=== PATIENT | female | born 2000 | race Caucasian/White ===

== ENCOUNTER 2023-05-02 16:58 | Emergency (ER) | payer BC, SELFPAY ==
[2023-05-02 17:02] VITALS: BP 120/81; PULSE 100; RESP 16; TEMP 36.4; O2SAT 100; BMI 17.8
--- NOTE | 2023-05-02 17:19 | ED.GENADULT ---
HPI - General Adult General Chief complaint: Sore Throat Stated complaint: Sore throat, white spots Time Seen by Provider: 05/02/23 17:00 History of Present Illness HPI narrative: pt tested positive for covid at urgent care on the . symptoms started around 04/22. not getting better. c/o sore throat, states white dots on back of throat. ears feel full. 22 year old young woman presenting to the emergency department complaint of sore throat. Recent diagnosis of COVID 5 days ago with symptoms beginning about 9 days ago. Upon diagnosis was given a course of prednisone sounds like 5 days. First symptom she says was diarrhea. She does also have myalgias. No described fever. On exam in notice with might be some plaquing posterior throat. She has had yeast infections but only yeast vaginitis not oral lesions and no history of cold sores in the mouth. No chronic illness otherwise. A little short of breath but not increasingly so. Sore throat has been increasing over the last 4 days especially on the right side. Does not have a history of asthma or reactive airway. Related Data Previous Rx's Medication Instructions Recorded Magic Mouthwash 5 - 10 ml PO QID PRN #120 mL 05/02/23 (Lidocaine/Benadryl/Maalox) 120 mL suspension Allergies Allergy/AdvReac Type Severity Reaction Status Date / Time No Known Drug Allergies Allergy Verified 05/02/23 17:07 Review of Systems Status of ROS: Reports: 6 or more systems reviewed and unremarkable except as noted in History and below Exam Narrative: Exam Narrative: Very slim. NAD. Mildly labored in her breathing. Lungs appear to be clear though. Clearing crepitus in the right lung base. Oropharynx is moist. She has white plaquing with erythema surrounding confluent more on the right soft palate than the left. No lesions elsewhere in the mouth. No actual gingival inflammation. Neck is supple without lymphadenopathy other than some fullness in the adenoids more sensitive on the right. Left TM is unremarkable right TM irregular but not inflamed. Heart in elevated rate in a regular rhythm. Const: Vital Signs, click to edit/add: Vital Signs - 24 hr 05/02/23 17:02 Temperature 97.5 F L Pulse Rate [Pulse Oximeter] 100 Respiratory Rate 16 Blood Pressure [Ri ght Upper Arm] 120/81 Pulse Oximetry 100 Oxygen Delivery Me thod Room Air Documenting provider has reviewed patient's vital signs: yes Course Vital Signs Vital signs: Initial Vital Signs Temperature 97.5 F L 05/02/23 17:02 Temperature Source Temporal Artery Scan 05/02/23 17:02 Pulse Rate 100 05/02/23 17:02 Respiratory Rate 16 05/02/23 17:02 Blood Pressure 120/81 05/02/23 17:02 Blood Pressure Mean 94 05/02/23 17:02 Blood Pressure Position Supine 05/02/23 17:02 Pulse Oximetry 100 05/02/23 17:02 Oxygen Delivery Method Room Air 05/02/23 17:02 Vital Signs Temperature 97.5 F L 05/02/23 17:02 Pulse Rate 100 05/02/23 17:02 Respiratory Rate 16 05/02/23 17:02 Blood Pressure 120/81 05/02/23 17:02 Pulse Oximetry 100 05/02/23 17:02 Oxygen Delivery Method Room Air 05/02/23 17:02 Temperature 97.5 F L 05/02/23 17:02 Pulse Rate 100 05/02/23 17:02 Respiratory Rate 16 05/02/23 17:02 Blood Pressure 120/81 05/02/23 17:02 Pulse Oximetry 100 05/02/23 17:02 Oxygen Delivery Method Room Air 05/02/23 17:02 Medical Decision Making MDM Narrative Medical decision making narrative: Wondering if this might actually be some oral thrush. She did have prednisone recently. No chronic illness otherwise noted. Might want to swab this for confirmation of this. I do not think these are typical for herpetic lesions. Testing for yeast and strep was negative. Was given ibuprofen during time in the ER. Some improvement with Hurricaine spray. Vitals stable. See patient discharge plan Lab Data Lab results reviewed: Yes I reviewed the patient's lab results Labs: Lab Results 05/02/23 Range/Units 17:35 CHETAN Result No Fungal Elements (None Seen) Group A Strep DNA NOT DETECTED (Not Detectd) CHETAN Prep Source Skin Discharge Plan Discharge Clinical Impression: Stomatitis, Pharyngitis Patient Disposition: Home, Self-Care Condition: Stable Additional Instructions: Important to stay well hydrated. Can take up to 800 mg of ibuprofen or up to 1000 mg of acetaminophen per dose. Continue to quarantine for a total of 10 days from 1st day of symptoms from COVID. [place] from [facility] if pain not settling with other recommended treatment. I would try anesthetic throat sprays or lozenges like Chloraseptic or Sucrets. Also can try Magic mouthwash as prescribed over this next week. Prescriptions: New Magic Mouthwash (Lidocaine/Benadryl/Maalox) 120 mL suspension 5 - 10 ml PO QID PRNQty: 120 1RF Rx Instructions: Lidocaine Viscous 2 % mucosal solution 40 mL; Maalox 200 mg-200 mg-20 mg/5 mL oral suspension 40 mL; Benadryl 12.5 mg/5 mL oral elixir 40 mL; Per 120 mL SWISH AND SPIT. MAY COMPOUND IF FIRST PRODUCT IS NOT AVAILABLE. Follow Up/Referrals: Provider,Not a Local [Primary Care Provider] - Stand Alone Forms: Continuing Education Records & [employer] Info Instructions
[2023-05-02] MEDS: IBUPROFEN 200 MG TABLET 600 MG PO (17:52)
[2023-05-02 18:29] LABS: Strep A DNA Probe* NOT DETECTED (Not Detectd)
== END 2023-05-02 19:02 | disposition home or self-care (01) ==
PROVIDERS: Emergency Provider Family Medicine
DX: R07.89 Other chest pain (principal)
CPT/HCPCS: 87210; 87651; 99283; 99284; A9270

== ENCOUNTER 2023-05-04 20:29 | Emergency (ER) | payer BC, SELFPAY ==
[2023-05-04 20:36] VITALS: BP 122/74; PULSE 110; RESP 18; TEMP 36.8; O2SAT 99; BMI 17.8
--- NOTE | 2023-05-04 20:40 | ED_ITS ---
HPI - General Adult General Time Seen by Provider: 20:40 Date Seen: 05/04/23 Chief complaint: Sore Throat Stated complaint: Sore throat Time Seen by Provider: 05/04/23 20:34 Source: patient Mode of arrival: ambulatory Limitations: no limitations History of Present Illness HPI narrative: 22-year-old female who presents today with sore throat. Patient was seen 2 days ago and had strep test done which was negative, was discharged with Magic mouthwash. Returns today with continued symptoms. Patient was diagnosed with COVID last week. Pain with swallowing. No breathing difficulty. She has been taking Tylenol and ibuprofen as well as using magic mouthwash with minimal relief Related Data Home Medications Medication Instructions Recorded Confirmed escitalopram oxalate 10 mg tablet 10 mg PO DAILY 05/04/23 05/04/23 levonorgestrel 0.15 mg-ethinyl 1 tab PO DAILY 05/04/23 05/04/23 estradiol 30 mcg tablets,3 mos pack(91) Previous Rx's Medication Instructions Recorded Magic Mouthwash 5 - 10 ml PO QID PRN #120 mL 05/02/23 (Lidocaine/Benadryl/Maalox) 120 mL suspension Allergies Allergy/AdvReac Type Severity Reaction Status Date / Time No Known Drug Allergies Allergy Verified 05/04/23 20:39 Review of Systems Status of ROS: Reports: 10 or more systems reviewed and unremarkable except as noted in History and below Exam Narrative: Exam Narrative: General: Well-developed and well-nourished, no acute distress Head: Atraumatic and normocephalic Eyes: Pupils are equal reactive, extraocular motions intact, conjunctiva clear ENT: External nose and ears are normal, posterior oropharynx erythematous with adherent white patches on the soft palate and tonsils as well as white plaque on the tongue Neck: No midline cervical tenderness, full spontaneous range of motion the neck, trachea midline, no adenopathy Heart: Tachycardic but regular Lungs: Clear to auscultation bilaterally without wheezes or crackles Abdomen: Soft, nontender, nondistended with active bowel sounds Musculoskeletal: No tenderness, deformity, or edema Neurologic: Awake, alert, and oriented x3, no gross focal neurologic deficits, cranial nerves intact as tested Psych: Mood and affect are appropriate Skin: No rashes Const: Vital Signs, click to edit/add: Vital Signs - 24 hr 05/04/23 20:36 Temperature 98.2 F Pulse Rate [Right Pulse Oximeter] 110 H Respiratory Rate 18 Blood Pressure [Ri ght Upper Arm] 122/74 Pulse Oximetry 99 Oxygen Delivery Ak thod Room Air Course Course Hospital Course: Patient seen examined, prior records are reviewed. Patient presents today with sore throat. Differential diagnosis includes but not limited to strep throat, peritonsillar abscess, gonococcal pharyngitis, mononucleosis, viral infection, COVID. Reevaluation(s) Time of Reevaluation #1: 21:45 Reevaluation #1: Labs independently interpreted by me demonstrate leukocytosis with marked lymphocytosis, basic panel reassuring, mono screen is positive. Symptoms are consistent with infectious mononucleosis. Discussed continued symptomatic treatment and patient is stable for discharge. Vital Signs Vital signs: Initial Vital Signs Temperature 98.2 F 05/04/23 20:36 Temperature Source Temporal Artery Scan 05/04/23 20:36 Pulse Rate 110 H 05/04/23 20:36 Respiratory Rate 18 05/04/23 20:36 Blood Pressure 122/74 05/04/23 20:36 Blood Pressure Mean 90 05/04/23 20:36 Blood Pressure Position Sitting 05/04/23 20:36 Pulse Oximetry 99 05/04/23 20:36 Oxygen Delivery Method Room Air 05/04/23 20:36 Vital Signs Temperature 98.2 F 05/04/23 20:36 Pulse Rate 110 H 05/04/23 20:36 Respiratory Rate 18 05/04/23 20:36 Blood Pressure 122/74 05/04/23 20:36 Pulse Oximetry 99 05/04/23 20:36 Oxygen Delivery Method Room Air 05/04/23 20:36 Temperature 98.2 F 05/04/23 20:36 Pulse Rate 110 H 05/04/23 20:36 Respiratory Rate 18 05/04/23 20:36 Blood Pressure 122/74 05/04/23 20:36 Pulse Oximetry 99 05/04/23 20:36 Oxygen Delivery Method Room Air 05/04/23 20:36 Medical Decision Making Medical Records Medical records reviewed: Yes I reviewed the patient's medical records Lab Data Lab results reviewed: Yes I reviewed the patient's lab results Labs: Lab Results 05/04/23 Range/Units 21:16 WBC 13.81 H (4.50-11.00) K/uL RBC 3.90 L (4.00-5.20) m/uL Hgb 11.5 L (12.0-16.0) gm/dL Hct 32.7 L (33.0-51.0) % MCV 84 (80-100) fL MCH 30 (26-34) pg MCHC 35 (32-36) gm/dL RDW Coeff of Ness 13.1 (11.5-15.5) % Plt Count 244 (140-440) K/uL Neut % (Auto) 22.0 L (42.0-72.0) % Lymph % (Auto) 72.5 H (20-44) % [place] % (Auto) 4.1 (0.0-11.0) % Eos % (Auto) 0.8 (0.0-7.0) % Baso % (Auto) 0.1 (0.0-3.0) % Neut # (Auto) 3.00 (1.7-7.0) K/uL Lymph # (Auto) 10.00 H (0.90-2.90) K/uL [place] # (Auto) 0.60 (0.00-0.90) K/UL Eos # (Auto) 0.10 (0.00-0.50) K/uL Baso # (Auto) 0.00 (0.00-0.30) K/uL Abs Immat Gran (auto) 0.10 (0.00-0.30) K/uL Imm/Tot Granulo (auto) 0.5 % Sodium 138 (135-149) mmol/L Potassium 3.4 L (3.6-5.1) mmol/L Chloride 105 (96-114) mmol/L Carbon Dioxide 30 (20-32) mmol/L Anion Gap 3 L (7-15) mEq/L BUN 6 (5-24) mg/dL Creatinine 0.4 L (0.5-1.5) mg/dL Estimated Creat Clear 176.71 Estimated GFR 145 ml/min Glucose 83 (60-115) mg/dL Calcium 8.3 L (8.4-10.6) mg/dL Monoscreen POSITIVE A (Negative) Discharge Plan Discharge Clinical Impression: Infectious mononucleosis Patient Disposition: Home, Self-Care Condition: Stable Instructions: Mononucleosis (ED) Activity Level: No Restrictions Prescriptions: No Action Magic Mouthwash (Lidocaine/Benadryl/Maalox) 120 mL suspension 5 - 10 ml PO QID PRNQty: 120 1RF Rx Instructions: Lidocaine Viscous 2 % mucosal solution 40 mL; Maalox 200 mg-200 mg-20 mg/5 mL oral suspension 40 mL; Benadryl 12.5 mg/5 mL oral elixir 40 mL; Per 120 mL SWISH AND SPIT. MAY COMPOUND IF FIRST PRODUCT IS NOT AVAILABLE. escitalopram oxalate 10 mg tablet 10 mg PO DAILY levonorgestrel-ethinyl estrad 0.15 mg-30 mcg (91) tablets,dose pack,3 month 1 tab PO DAILY Follow Up/Referrals: Provider,Not a Local [Primary Care Provider] - Stand Alone Forms: [employer] Info Instructions
[2023-05-04] MEDS: KETOROLAC 15 MG/ML inj IVP (21:04)
[2023-05-04] MEDS: 0.9 % SODIUM CHLORIDE 1000 ml 1,000 ML IV (21:04)
[2023-05-04] MEDS: dexAMETHasone 4 MG/ML VIAL IV (21:04)
[2023-05-04 21:21] LABS: Basophils Percent Auto 0.1 % (0.0-3.0); Eosinophils Percent Auto 0.8 % (0.0-7.0); Hematocrit 32.7 % (33.0-51.0); Hemoglobin* 11.5 gm/dL (12.0-16.0); Immature Granulocytes Pct Auto 0.5 %; Mean Corpuscular HGB Conc 35 gm/dL (32-36); Mean Corpuscular Hemoglobin 30 pg (26-34); Mean Corpuscular Volume 84 fL (80-100); Monocytes Percent Auto 4.1 % (0.0-11.0); Platelet Count* 244 K/uL (140-440); RDW Coefficient of Variation % 13.1 % (11.5-15.5); White Blood Count* 13.81 K/uL (4.50-11.00)
[2023-05-04 21:28] LABS: Mono Screen* POSITIVE (Negative)
[2023-05-04 21:33] LABS: Chloride* 105 mmol/L (96-114)
[2023-05-04 21:34] LABS: Potassium* 3.4 mmol/L (3.6-5.1); Sodium* 138 mmol/L (135-149)
[2023-05-04 21:36] LABS: Creatinine* 0.4 mg/dL (0.5-1.5); Est. Creatinine Clearance* 176.71; Estimated Glomerular Filt Rate 145 ml/min
[2023-05-04 21:37] LABS: Anion Gap 3 mEq/L (7-15); Blood Urea Nitrogen* 6 mg/dL (5-24); Calcium* 8.3 mg/dL (8.4-10.6); Carbon Dioxide* 30 mmol/L (20-32); Glucose* 83 mg/dL (60-115)
[2023-05-04 21:39] LABS: Lymphocytes Percent Auto 72.5 % (20-44); Slide Review Reflex No
== END 2023-05-04 22:12 | disposition home or self-care (01) ==
PROVIDERS: Emergency Provider Family Medicine
DX: B27.90 Infectious mononucleosis, unspecified without complication (principal)
CPT/HCPCS: 36415; 80048; 85025; 86308; 96374; 96375; 99284; J1100; J1885; J7030

== ENCOUNTER 2023-05-06 13:12 | Emergency (ER) | payer BC, SELFPAY ==
[2023-05-06 13:26] VITALS: BP 105/72; PULSE 133; RESP 20; TEMP 36.8; O2SAT 98; BMI 18.6
--- NOTE | 2023-05-06 13:54 | CRLHL7_ITS ---
For Patients: As a result of the Cures Act, medical imaging exams and procedure reports are released immediately into your electronic medical record. You may view this report before your referring provider. If you have questions, please contact your health care provider. INDICATION: Mononucleosis. TECHNIQUE: CT of the neck soft tissues performed with IV contrast. Contrast: 56 cc Isovue 370. COMPARISON: None available at this institution. FINDINGS: Symmetric enlargement, with heterogeneous enhancement of the adenoid and tonsillar soft tissues. No defined fluid collection to suggest drainable abscess. There is extensive bilateral cervical chain lymphadenopathy. The parotid and submandibular glands appear unremarkable. The thyroid gland is normal. The visualized major vascular structures appear intact. The visualized intracranial components appear grossly intact. Visualized orbits and contents appear unremarkable. The paranasal sinuses are clear as visualized. Lung apices are clear. IMPRESSION: 1. Extensive cervical chain adenopathy, which would be compatible with history of mononucleosis. 2. Bilateral adenoid and palatine tonsillitis. No defined fluid collection to suggest drainable abscess. Please note that all CT scans at this facility use dose modulation, iterative reconstruction, and/or weight-based dosing when appropriate to reduce radiation dose to as low as reasonably achievable. Dictated by Octavio Leigh MD @ 05/06/2023 4:23:51 PM (Electronically Signed)
[2023-05-06] MEDS: KETOROLAC 15 MG/ML inj IVP (14:18)
[2023-05-06] MEDS: 0.9 % SODIUM CHLORIDE 1000 ml 1,000 ML IV ×2 (14:18→16:30)
[2023-05-06] MEDS: MORPHINE 4 MG/ML INJ IVP (14:18)
[2023-05-06] MEDS: METHYLPREDNISOLONE SOD SUCC 62.5 MG/ML (125) 125 MG IVP (14:18)
[2023-05-06 14:35] LABS: Basophils Percent Auto 0.3 % (0.0-3.0); Eosinophils Percent Auto 0.4 % (0.0-7.0); Hemoglobin* 13.6 gm/dL (12.0-16.0); Immature Granulocytes Pct Auto 0.3 %; Lymphocytes Percent Auto 58.4 % (20-44); Mean Corpuscular HGB Conc 35 gm/dL (32-36); Mean Corpuscular Hemoglobin 29 pg (26-34); Mean Corpuscular Volume 83 fL (80-100); Monocytes Percent Auto 5.9 % (0.0-11.0); Neutrophils Percent Auto 34.7 % (42.0-72.0); Platelet Count* 293 K/uL (140-440); Red Blood Count 4.68 m/uL (4.00-5.20); White Blood Count* 14.82 K/uL (4.50-11.00)
[2023-05-06 14:51] LABS: Slide Review Reflex No
[2023-05-06 14:53] LABS: Chloride* 102 mmol/L (96-114)
[2023-05-06 14:54] LABS: Potassium* 3.9 mmol/L (3.6-5.1); Sodium* 137 mmol/L (135-149)
[2023-05-06 14:56] LABS: Creatinine* 0.4 mg/dL (0.5-1.5); Est. Creatinine Clearance* 184.74; Estimated Glomerular Filt Rate 145 ml/min
[2023-05-06 14:57] LABS: Anion Gap 10 mEq/L (7-15); Blood Urea Nitrogen* 8 mg/dL (5-24); Carbon Dioxide* 25 mmol/L (20-32); Glucose* 95 mg/dL (60-115)
[2023-05-06 14:58] LABS: Calcium* 9.5 mg/dL (8.4-10.6)
[2023-05-06 15:00] LABS: C Reactive Protein* 1.4 mg/dL (0.5-1.0)
[2023-05-06 15:18] LABS: HCG Qualitative Serum* Negative (Negative)
[2023-05-06 16:32] VITALS: BP 102/61; PULSE 85; RESP 16; TEMP 36.3; O2SAT 97
--- NOTE | 2023-05-06 17:06 | ED.GENADULT ---
HPI - General Adult General Date Seen: 05/06/23 Chief complaint: Sore Throat Stated complaint: Hall 2 days ago-glove cutter/os, sore throat Time Seen by Provider: 05/06/23 13:22 Source: patient and other Mode of arrival: ambulatory Limitations: no limitations History of Present Illness HPI narrative: Patient is a 22-year-old who originally developed symptoms which were upper respiratory including sore throat on April 22. She was diagnosed with COVID on April 27, started on prednisone at that time for 5 days. Then on May 02 she was seen here due to ongoing symptoms. She was treated symptomatically at that time, seen here on the because she still had a sore throat which was more severe and at that time tested positive for mono. On the she was given [place], on the she was given oxycodone. She comes in today saying that she continues to have a sore throat, that the oxycodone is not controlling her pain. She takes ibuprofen sporadically. She does not report significant fever. Initially her friend was doing the talking. She had a nose bleed when she got here but has not been having nose bleeds in general. She has not had vomiting or rashes. Her friend said that she has not been able to eat or drink anything because of severe pain with swallowing, she is swallowing secretions. She would have finished her course of prednisone on May 01. Related Data Home Medications Medication Instructions Recorded Confirmed escitalopram oxalate 10 mg tablet 10 mg PO DAILY 05/04/23 05/04/23 levonorgestrel 0.15 mg-ethinyl 1 tab PO DAILY 05/04/23 05/04/23 estradiol 30 mcg tablets,3 mos pack(91) Previous Rx's Medication Instructions Recorded Magic Mouthwash 5 - 10 ml PO QID PRN #120 mL 05/02/23 (Lidocaine/Benadryl/Maalox) 120 mL suspension Allergies Allergy/AdvReac Type Severity Reaction Status Date / Time No Known Drug Allergies Allergy Verified 05/06/23 15:56 Review of Systems Status of ROS: Reports: 6 or more systems reviewed and unremarkable except as noted in History and below PFSH PFSH Social History Smoking Status: Never smoker Do you use any of these nicotine containing products: None Second hand tobacco smoke exposure: No How often do you have a drink containing alcohol: never How often do you have six or more drinks on one occasion: Never AUDIT-C Alcohol total score: 0 Non-prescribed substance use: denies use service: No Exam Narrative: Exam Narrative: Vital signs as noted above. In general, an alert, nontoxic young woman. Breathing easily. Initially had a nosebleed from the right near ease, controlled with pressure. Head: Normocephalic, atraumatic. Eyes: Pupils are equal reactive. Extraocular movements are full. Conjunctivae are normal. ENT: Mucous membranes are slightly dry. Throat is erythematous, exudative. I did not see evidence of asymmetrical swelling suggestive of abscess. No significant edema. Neck: Significant anterior adenopathy. No stridor. Heart: Tachycardic and regular. No murmur. Lungs: Clear bilaterally. No increased work of breathing, crackles or wheezes. Abdomen: Soft, nontender to palpation. Extremities: Well perfused. No edema. No calf tenderness. Pulses intact. Neurologic: Patient is alert and oriented to person and place. Speech is fluent. Face is symmetric. Moves all extremities equally. Affect: Normal. Skin: Warm and dry. Well perfused. Const: Vital Signs, click to edit/add: Vital Signs - 24 hr 05/06/23 13:26 05/06/23 16:32 Temperature 98.2 F 97.4 F L Pulse Rate [Right Pulse Oximeter] 133 H 85 Respiratory Rate 20 16 Blood Pressure [Ri ght Upper Arm] 105/72 102/61 Pulse Oximetry 98 97 Oxygen Delivery Me thod Room Air Room Air Documenting provider has reviewed patient's vital signs: yes Course Course ED Course: We established an IV and gave a total of 2 L of normal saline. She had 125 mg of Solu-Medrol, 15 mg of Toradol and 4 mg of morphine. Because she was complaining of worsening and severe pain, elected to do a CT scan to reassure her that there was nothing more ominous in her symptoms. I checked a metabolic panel, this was reassuring, BUN and creatinine were normal, electrolytes were normal. CO2 was 25. Her white count was not elevated a couple of days ago and remained elevated at 14. Her CRP was minimally elevated at 1.4. Her lactate was reassuringly normal at 1. CT scan by my review did not show evidence of abscess, radiology reads this as showing significant adenopathy consistent with mono but no evidence of a drainable fluid collection. I have reviewed all of this with the patient. She looks significantly improved after fluids and medications. She expresses frustration that she does not feel better at home, she wonders about admission to the hospital. I have discussed with her that I think that we can get her through this at home. She was swallowing secretions even upon arrival prior to medications, her labs do not suggest dangerous levels of dehydration. I have suggested that I think we can improve the way that she is taking her medications, I have suggested that she take a combination of ibuprofen 400 mg and Tylenol 1000 mg 3 times daily. I have stressed that she does not need to eat, as long she is drinking fluids that have calories in them she will be fine for a few days. She can continue taking the oxycodone, and I am going to put her back on a steroid which I think will provide some increased anti inflammatory effect for her. I have stressed to her that it is unrealistic to expect that she will have no sore throat, the goal is simply that she is able to get liquids down. At this point, she is speaking in a normal voice, she is breathing easily, she is swallowing without difficulty, and with an unremarkable CT and normal labs I think it is reasonable to discharge her home. Vital Signs Vital signs: Initial Vital Signs Temperature 98.2 F 05/06/23 13:26 Temperature Source Temporal Artery Scan 05/06/23 13:26 Pulse Rate 133 H 05/06/23 13:26 Respiratory Rate 20 05/06/23 13:26 Blood Pressure 105/72 05/06/23 13:26 Blood Pressure Mean 83 05/06/23 13:26 Blood Pressure Position Sitting 05/06/23 13:26 Pulse Oximetry 98 05/06/23 13:26 Oxygen Delivery Method Room Air 05/06/23 13:26 Vital Signs Temperature 98.2 F 05/06/23 13:26 Pulse Rate 133 H 05/06/23 13:26 Respiratory Rate 20 05/06/23 13:26 Blood Pressure 105/72 05/06/23 13:26 Pulse Oximetry 98 05/06/23 13:26 Oxygen Delivery Method Room Air 05/06/23 13:26 Temperature 97.4 F L 05/06/23 16:32 Pulse Rate 85 05/06/23 16:32 Respiratory Rate 16 05/06/23 16:32 Blood Pressure 102/61 05/06/23 16:32 Pulse Oximetry 97 05/06/23 16:32 Oxygen Delivery Method Room Air 05/06/23 16:32 Medical Decision Making Lab Data Labs: Lab Results 05/06/23 Range/Units 14:18 WBC 14.82 H (4.50-11.00) K/uL RBC 4.68 (4.00-5.20) m/uL Hgb 13.6 (12.0-16.0) gm/dL Hct 39.0 (33.0-51.0) % MCV 83 (80-100) fL MCH 29 (26-34) pg MCHC 35 (32-36) gm/dL RDW Coeff of Ness 13.0 (11.5-15.5) % Plt Count 293 (140-440) K/uL Neut % (Auto) 34.7 L (42.0-72.0) % Lymph % (Auto) 58.4 H (20-44) % [place] % (Auto) 5.9 (0.0-11.0) % Eos % (Auto) 0.4 (0.0-7.0) % Baso % (Auto) 0.3 (0.0-3.0) % Neut # (Auto) 5.10 (1.7-7.0) K/uL Lymph # (Auto) 8.70 H (0.90-2.90) K/uL [place] # (Auto) 0.90 (0.00-0.90) K/UL Eos # (Auto) 0.10 (0.00-0.50) K/uL Baso # (Auto) 0.00 (0.00-0.30) K/uL Abs Immat Gran (auto) 0.00 (0.00-0.30) K/uL Imm/Tot Granulo (auto) 0.3 % Sodium 137 (135-149) mmol/L Potassium 3.9 (3.6-5.1) mmol/L Chloride 102 (96-114) mmol/L Carbon Dioxide 25 (20-32) mmol/L Anion Gap 10 (7-15) mEq/L BUN 8 (5-24) mg/dL Creatinine 0.4 L (0.5-1.5) mg/dL Estimated Creat Clear 184.74 Estimated GFR 145 ml/min Glucose 95 (60-115) mg/dL Lactate 1.0 (0.5-1.9) mmol/L Calcium 9.5 (8.4-10.6) mg/dL C-Reactive Protein 1.4 H (0.5-1.0) mg/dL HCG, Qual Negative (Negative) Discharge Plan Discharge Clinical Impression: Infectious mononucleosis Patient Disposition: Home, Self-Care Condition: Improved Instructions: Mononucleosis (ED) Additional Instructions: Ibuprofen 400 mg plus Tylenol 1000 mg 3 times daily. Oxycodone as needed. Prednisone as prescribed. Make sure you are getting liquids in, with some calories. Your throat will likely improve over the course of 7-[address] scan did not show any evidence of abscess today. Your labs were reassuring. Prescriptions: No Action Magic Mouthwash (Lidocaine/Benadryl/Maalox) 120 mL suspension 5 - 10 ml PO QID PRNQty: 120 1RF Rx Instructions: Lidocaine Viscous 2 % mucosal solution 40 mL; Maalox 200 mg-200 mg-20 mg/5 mL oral suspension 40 mL; Benadryl 12.5 mg/5 mL oral elixir 40 mL; Per 120 mL SWISH AND SPIT. MAY COMPOUND IF FIRST PRODUCT IS NOT AVAILABLE. escitalopram oxalate 10 mg tablet 10 mg PO DAILY levonorgestrel-ethinyl estrad 0.15 mg-30 mcg (91) tablets,dose pack,3 month 1 tab PO DAILY Follow Up/Referrals: Zoltan Copeland PA-C [Primary Care Provider] - Stand Alone Forms: Printed [employer] Info Instructions
== END 2023-05-06 17:20 | disposition home or self-care (01) ==
PROVIDERS: Emergency Provider Emergency Medicine; PCP Physician Assistant
DX: B27.90 Infectious mononucleosis, unspecified without complication (principal)
CPT/HCPCS: 36415; 70491; 80048; 83605; 84703; 85025; 86140; 96361; 96374; 96375; 99284; 99285; J1885; J2270; J2930; J7030; Q9967

== ENCOUNTER 2023-05-11 17:12 | Emergency (ER) | payer BC, SELFPAY ==
[2023-05-11 17:36] VITALS: BP 117/71; PULSE 106; RESP 114; TEMP 37.8; O2SAT 97; BMI 17.8
[2023-05-11 18:55] LABS: Basophils Absolute Auto 0.02 K/uL (0.00-0.30); Basophils Percent Auto 0.3 % (0.0-3.0); Hematocrit 36.5 % (33.0-51.0); Hemoglobin* 12.5 gm/dL (12.0-16.0); Immature Granulocytes Abs Auto 0.02 K/uL (0.00-0.30); Immature Granulocytes Pct Auto 0.3 %; Lymphocytes Percent Auto 46.9 % (20-44); Mean Corpuscular HGB Conc 34 gm/dL (32-36); Mean Corpuscular Hemoglobin 29 pg (26-34); Mean Corpuscular Volume 85 fL (80-100); Neutrophils Absolute Auto 3.94 K/uL (1.7-7.0); Neutrophils Percent Auto 49.5 % (42.0-72.0); Platelet Count* 417 K/uL (140-440); RDW Coefficient of Variation % 12.9 % (11.5-15.5); Red Blood Count 4.32 m/uL (4.00-5.20); White Blood Count* 7.95 K/uL (4.50-11.00)
[2023-05-11 19:05] LABS: Slide Review Reflex No
--- NOTE | 2023-05-11 19:07 | ED_ITS ---
HPI - General Adult General Date Seen: 05/11/23 Chief complaint: GI Bleed Stated complaint: Extreme bleeding from rectum Time Seen by Provider: 05/11/23 17:18 Source: patient Mode of arrival: ambulatory Limitations: no limitations History of Present Illness HPI narrative: Patient is a 22-year-old female presenting to the emergency department for GI bleed. She states she had a bowel movement today how large amount of blood on her toilet paper when she wiped. She also notes blood in the toilet. She states there was no stool in the was all blood. She states she has 1 bowel movement a week and she has been having issues with blood in her stool for the past several years since she was around 9 or 10 years old. She was supposed to see a GI specialist a few months ago but was unable to get an because he did not have a referral. She states she has been having some lower abdominal cramping has been going on for about 2 days now. Denies lightheadedness, dizziness, chest pain, shortness of breath common headache, vision changes, weakness, numbness. States she has some mild discomfort around the rectum Related Data Home Medications Medication Instructions Recorded Confirmed escitalopram oxalate 10 mg tablet 10 mg PO DAILY 05/04/23 05/11/23 levonorgestrel 0.15 mg-ethinyl 1 tab PO DAILY 05/04/23 05/11/23 estradiol 30 mcg tablets,3 mos pack(91) famotidine 20 mg tablet 20 mg PO DAILY 05/11/23 05/11/23 Previous Rx's Medication Instructions Recorded Magic Mouthwash 5 - 10 ml PO QID PRN #120 mL 05/02/23 (Lidocaine/Benadryl/Maalox) 120 mL suspension Allergies Allergy/AdvReac Type Severity Reaction Status Date / Time cat dander Allergy Mild Itchiness Verified 05/11/23 17:45 Review of Systems Status of ROS: Reports: 10 or more systems reviewed and unremarkable except as noted in History and below PFSH PFS Social History Smoking Status: Current every day smoker Do you use any of these nicotine containing products: E-Cigarettes and Vaping Products Second hand tobacco smoke exposure: No How often do you have a drink containing alcohol: never How often do you have six or more drinks on one occasion: Never AUDIT-C Alcohol total score: 0 Non-prescribed substance use: denies use service: No Exam Narrative: Exam Narrative: Const: Well-nourished, Well-developed, in mild distress Eyes: PERRL, no conjunctival injection, and symmetrical lids ENMT: Atraumatic external nose and ears. Moist mucous membranes. Neck: Symmetric, trachea midline, No thyromegaly. CVS: RRR, No murmurs or gallops. Peripheral pulses 2+ and equal in all extremities RESP: Unlabored respiratory effort. Clear to auscultation bilaterally. GI: Nontender/Nondistended, No rebound or guarding. MSK:Extremities w/o deformity, Normal Active ROM Skin: Warm, Dry. No rashes or lesions. Neuro: Normal Muscle tone, No focal neurological deficits. Psych: Awake, Alert, & Oriented x3. Appropriate mood and affect. Const: Vital Signs, click to edit/add: Vital Signs - 24 hr 05/11/23 17:36 Temperature 100.1 F H Pulse Rate [Pulse Oximeter] 106 H Respiratory Rate 114 H Blood Pressure [Ri ght Upper Arm] 117/71 Pulse Oximetry 97 Oxygen Delivery Me thod Room Air Course Vital Signs Vital signs: Initial Vital Signs Temperature 100.1 F H 05/11/23 17:36 Temperature Source Temporal Artery Scan 05/11/23 17:36 Pulse Rate 106 H 05/11/23 17:36 Respiratory Rate 114 H 05/11/23 17:36 Blood Pressure 117/71 05/11/23 17:36 Blood Pressure Mean 86 05/11/23 17:36 Blood Pressure Position Sitting 05/11/23 17:36 Pulse Oximetry 97 05/11/23 17:36 Oxygen Delivery Method Room Air 05/11/23 17:36 Vital Signs Temperature 100.1 F H 05/11/23 17:36 Pulse Rate 106 H 05/11/23 17:36 Respiratory Rate 114 H 05/11/23 17:36 Blood Pressure 117/71 05/11/23 17:36 Pulse Oximetry 97 05/11/23 17:36 Oxygen Delivery Method Room Air 05/11/23 17:36 Temperature 100.1 F H 05/11/23 17:36 Pulse Rate 106 H 05/11/23 17:36 Respiratory Rate 114 H 05/11/23 17:36 Blood Pressure 117/71 05/11/23 17:36 Pulse Oximetry 97 05/11/23 17:36 Oxygen Delivery Method Room Air 05/11/23 17:36 Medical Decision Making MDM Narrative Medical decision making narrative: Patient is a 22-year-old female presents emergency department for GI bleed. She had, according to her, large amount of blood in the toilet and on her toilet paper. She showed me a picture of the toilet paper was a moderate amount of blood seen. She states she thinks she passed about a quarter cup worth of blood. She is still noticing blood in her stool. Having some mild crampy abdominal pain. This could all be secondary to constipation causing the symptoms. They do a CBC and BMP. They returned showing no acute abnormalities. Hemoglobin is 12.5. Is within normal limits. A digital rectal exam and I believe I felt a small internal hemorrhoid. This could be what is causing her bleeding but I cannot definitively say this. She needs to see a GI specialist for further workup. Patient discharged home her and her mother agree with this plan. Lab Data Labs: Lab Results 05/11/23 Range/Units 18:48 WBC 7.95 (4.50-11.00) K/uL RBC 4.32 (4.00-5.20) m/uL Hgb 12.5 (12.0-16.0) gm/dL Hct 36.5 (33.0-51.0) % MCV 85 (80-100) fL MCH 29 (26-34) pg MCHC 34 (32-36) gm/dL RDW Coeff of Ness 12.9 (11.5-15.5) % Plt Count 417 (140-440) K/uL Neut % (Auto) 49.5 (42.0-72.0) % Lymph % (Auto) 46.9 H (20-44) % Gentry % (Auto) 3.0 (0.0-11.0) % Eos % (Auto) 0.0 (0.0-7.0) % Baso % (Auto) 0.3 (0.0-3.0) % Neut # (Auto) 3.94 (1.7-7.0) K/uL Lymph # (Auto) 3.70 H (0.90-2.90) K/uL Gentry # (Auto) 0.20 (0.00-0.90) K/UL Eos # (Auto) 0.00 (0.00-0.50) K/uL Baso # (Auto) 0.02 (0.00-0.30) K/uL Abs Immat Gran (auto) 0.02 (0.00-0.30) K/uL Imm/Tot Granulo (auto) 0.3 % Sodium 138 (135-149) mmol/L Potassium 3.9 (3.6-5.1) mmol/L Chloride 105 (96-114) mmol/L Carbon Dioxide 26 (20-32) mmol/L Anion Gap 7 (7-15) mEq/L BUN 13 (5-24) mg/dL Creatinine 0.6 (0.5-1.5) mg/dL Estimated Creat Clear 117.81 Estimated GFR 132 ml/min Glucose 136 H (60-115) mg/dL Calcium 9.3 (8.4-10.6) mg/dL Discharge Plan Discharge Clinical Impression: GI bleed Patient Disposition: Home, Self-Care Condition: Stable Instructions: Hemorrhoids (DC) Additional Instructions: I believe you may have internal hemorrhoids but for better evaluation supported to follow with a GI specialist. Return for new worsening symptoms. Prescriptions: No Action Magic Mouthwash (Lidocaine/Benadryl/Maalox) 120 mL suspension 5 - 10 ml PO QID PRNQty: 120 1RF Rx Instructions: Lidocaine Viscous 2 % mucosal solution 40 mL; Maalox 200 mg-200 mg-20 mg/5 mL oral suspension 40 mL; Benadryl 12.5 mg/5 mL oral elixir 40 mL; Per 120 mL SWISH AND SPIT. MAY COMPOUND IF FIRST PRODUCT IS NOT AVAILABLE. escitalopram oxalate 10 mg tablet 10 mg PO DAILY levonorgestrel-ethinyl estrad 0.15 mg-30 mcg (91) tablets,dose pack,3 month 1 tab PO DAILY famotidine 20 mg tablet 20 mg PO DAILY Follow Up/Referrals: Zoltan Copeland PA-C [Primary Care Provider] - Stand Alone Forms: [facility] Info Instructions
[2023-05-11 19:12] LABS: Chloride* 105 mmol/L (96-114); Potassium* 3.9 mmol/L (3.6-5.1); Sodium* 138 mmol/L (135-149)
[2023-05-11 19:15] LABS: Anion Gap 7 mEq/L (7-15); Blood Urea Nitrogen* 13 mg/dL (5-24); Calcium* 9.3 mg/dL (8.4-10.6); Carbon Dioxide* 26 mmol/L (20-32); Creatinine* 0.6 mg/dL (0.5-1.5); Est. Creatinine Clearance* 117.81; Estimated Glomerular Filt Rate 132 ml/min; Glucose* 136 mg/dL (60-115)
[2023-05-11 20:06] VITALS: BP 119/73; PULSE 98; RESP 20; O2SAT 97
== END 2023-05-11 20:06 | disposition home or self-care (01) ==
PROVIDERS: Emergency Provider Student in an Organized Health Care Education/Training Program; PCP Physician Assistant
DX: K92.2 Gastrointestinal hemorrhage, unspecified (principal)
CPT/HCPCS: 36415; 80048; 85025; 99283

== ENCOUNTER 2024-10-07 22:07 | Emergency (ER) | payer BC, SELFPAY ==
--- OUTSIDE RECORDS SUMMARY | 2024-10-07 22:10 | XMS_ITS | Clinical Summary ---
Author Organization [facility] Address [place], [place] [address] Care Team Providers Care Perforator Typist Name Role Phone Zoltan Copeland Primary Care Provider [phone] Allergies Active Allergy Reactions Criticality Noted Date Comments Cat Dander Itching 12/15/2012 Ragweed Pollen *Unknown 07/02/2020 Water eyes, running nose, congestion Medications Pulse OximeterIndication s:COVID For home use. 1 Each 03/07/20 22 Active albuterol HFA (ProAir HFA) 90 mcg/actuation inhalerIndications :Flu-like symptoms Inhale 2 Puffs by mouth every 6 hours if needed for Shortness Of Breath. 1 Each 07/28/20 22 Active fluconazole (DIFLUCAN) 150 mg tabletIndications: Acute otitis externa of right ear, unspecified type Take 1 Tablet (150 mg) by mouth one time if needed (vaginal discharge with antibiotic use) for up to 1 dose. 1 Tablet 08/17/20 22 Active famotidine (PEPCID) 20 mg tabletIndications: Epigastric abdominal pain,Nausea Take 1 Tablet (20 mg) by mouth once daily. 30 Tablet 11/13/19 23 Active ondansetron (ZOFRAN ODT) 4 mg disintegrating tabletIndications: Nausea Place 1 Tablet (4 mg) on the tongue every 8 hours if needed for Nausea/Vomiting. 20 Tablet 11/13/19 23 Active QUEtiapine (SEROQUEL) 25 mg tablet Take 25 mg by mouth once daily if needed. 07/09/20 23 Active levonorgestrel-eth inyl estradiol (SEASONALE) 0.15 mg-30 mcg (91) tablet Take 1 Tablet by mouth once daily. 10/22/19 Active omeprazole (PRILOSEC) 40 mg Delayed-Release capsule Take 40 mg by mouth. 06/05/20 Active prochlorperazine (COMPAZINE) 5 mg tablet Take 5 mg by mouth every 6 hours if needed. 06/05/20 Active fluconazole (DIFLUCAN) 150 mg tablet Take 150 mg by mouth. 10/22/19 Active amoxicillin (AMOXIL) 875 mg tabletIndications: Uvulitis,Bronchiti s,Leukocytosis, unspecified type Take 1 Tablet (875 mg) by mouth two times daily. 20 Tablet 11/09/19 24 Active HYDROcodone-acetam inophen (5-325 mg/tablet)Indicati ons:Pain, dental Take 1-2 Tablets by mouth every 6 hours if needed for Pain. Max acetaminophen dose: 4000 mg in 24 hrs. 16 Tablet 12/22/19 Active Active Problems Problem Noted Date Diagnosed Date Gastrointestinal hemorrhage 05/14/2023 Infectious mononucleosis 05/14/2023 Pharyngitis, acute 05/14/2023 Stomatitis 05/14/2023 Underweight 05/14/2023 Anxiety 04/26/2021 Chronic constipation 09/25/2016 Resolved Problems Problem Noted Date Diagnosed Date Resolved Date Encounter for routine child health examination without abnormal findings 05/01/2016 Immunizations Name Administration Dates Next Due DTaP 03/28/2008, 4,03/23/2003,01/24,2002 DTaP-HIB (TriHIBIT) 12/26/2003 [id number] (Pediarix) 01/24/2003,2002 HIB PRP-OMP (PedvaxHIB) 12/26/2003,07/03,01/24/2003,11/22 HIB PRP-T (ActHIB,Hiberix) 01/24/2003,2002 HIB-HepB (Comvax) 07/03/2003 HPV 9 (Gardasil 9) 01/14/2022,10/28/2021, 021 Hepatitis A (Peds) 01/05/2014,12/15/2012 Hepatitis B (Peds) 07/03/2003, 3,2002,09/24 Inactivated Polio Vaccine 03/28/2008,,01/24/2003,11/22 Influenza A (H1N1), Inactivated 07/19/2009 MMR 03/28/2008,09/29/2003 Meningococcal Vaccine (Menactra) 04/26/2021,03/31 Pneumococcal conj 7-Valent (Prevnar 7) 3,2002 Tdap 12/15/2012 Varicella Vaccine 03/28/2008,09/29/2003 Family History Medical History Relation Name Comments Seizures Brother 2 half brother Relation Name Status Comments Brother 1 Alive Brother 2 Father Alive Maternal Grandfather Maternal Grandmother Alive Mother Alive Paternal Grandfather Alive Paternal Grandmother Alive Sister Alive Social History Tobacco Use Types Packs/Day Years Used Date Smoking Tobacco: Never Passive Smoke Exposure: Yes Smokeless Tobacco: Never Tobacco Cessation:Counseling Given: Not Answered Comments:Vaping Alcohol Use Standard Drinks/Week Comments Yes 0 (1 standard drink = 0.6 oz pur e alcohol) socially Social Connections Answer Date Recorded Frequency of Communication with Friends and Fami ly Not on file 08/31/2021 Financial Resource Strain Answer Date R ecorded Difficulty of Paying Living Expenses Not on file 08/31/2021 Difficulty of Paying Living Expenses Not on file 08/31/2021 Interpersonal Safety Answer Date Record ed Are you being hit, kicked, p ushed or yelled at (see row info)? No 03/15/2024 Interpersonal Safety Abuse 12 - 18 Not on file 03/15/2024 Interpersonal Safety Ambulatory Vulnerability No t on file 03/15/2024 Comments No Sex and Gender Information Value Date Recorded Sex Assigned at Not on file Legal Sex Female 5:26 AM EXHIBITS COORDINATOR Gender Identity Not on file Sexual Orientation Not on file Occupation Industry Job Start Date Job End Date Student Not on file Not on file Not on file Obstetrics History Last Filed Vital Signs Vital Sign Reading Time Taken Comments Blood Pressure 144/84 03/15/2024 7:15 PM CDT Pulse 137 03/15/2024 7:15 PM CDT Temperature 38 C (100.4 F) 03/15/2024 7:15 PM CDT Respiratory Rate 28 03/15/2024 7:15 PM CDT Oxygen Saturation 97% 03/15/2024 7:15 PM CDT Inhaled Oxygen Concentration - - Weight 55.8 kg (123 lb) 03/15/2024 7:15 PM CDT Height 167.6 cm (5' 6) 03/15/2024 7:15 PM CDT Body Mass Index 19.85 03/15/2024 7:15 PM CDT Plan of Treatment Upcoming Encounters Date Type Department Care Team (Late st Contact Info) Description 10/12/2024 12:00 PM EXHIBITS COORDINATOR Office Visit [facility] [address] [place] [address] Efraín Lynn MD [address] [place] [address] Health Maintenance Due Date Last Done Comments Depression screening for age 12+ 2014 HIV for age 15-65 2017 BMI (ht and wt on same day) for age 18+ 2020 Hepatitis C screening for ag e 18-79 2020 HPV series for age 9-26 (3 - 3-dose series) 04/08/2022 01/14/2022, 10/28/2021, 06/12/2021 Tetanus booster 12/15/2022 12/15/2012 Pap test for age 21-65 2023 COVID-19 vaccine series ( season) 2024 Influenza for age 9-49 05/01/2024 07/19/2009 Pneumococcal series for age 6-49 Aged Out 01/24/2003, 2002 No longer eligible based on patient's age to complete this topic Tdap Completed 12/15/2012 Insurance [facility] [address] [facility] [id number] Care Teams Perforator Typist Relationship Specialty Start Date End Date Zoltan Copeland PA [address] [facility] [place] [id number] PCP - General Physician Water[employer] Traffic Checker 05/02/23
--- OUTSIDE RECORDS SUMMARY | 2024-10-07 22:10 | XMS_ITS | Clinical Summary ---
Author Organization [facility] Address [address] [place] [address] Care Team Providers Care Environmental Engineering Intern Name Role Phone Elsewhere, Pcp Primary Care Provider Unavailabl e Source Comments Patient records contain information from all sites at [facility]. For routine questions regarding patient records, call [phone] during business hours, M-F 8:00 AM - 5:00 PM Central Time. Record requests for emergency care only can be directed to [phone] at any time.[facility] Allergies Active Allergy Reactions Criticality Noted Date Comments Cat Dander Itching 12/15/2012 Ragweed Pollen Other (see comments) 07/02/2020 Water eyes, running nose, congestion Medications * This document contains information received from the source organization and may not represent a complete record from that organization. albuterol 90 mcg/actuation inhaler Inhale 2 puffs every 6 (six) hours as needed. 07/28/2022 Active escitalopram (LEXAPRO) 10 mg tablet Take 1 tablet (10 mg total) by mouth daily. 60 tablet 1 03/06/2023 Active omeprazole (PriLOSEC) [address] capsule Take 1 capsule (40 mg total) by mouth daily. 30 capsule 3 06/05/2023 Active prochlorperazin e (COMPAZINE) 5 mg tablet Take 1 tablet (5 mg total) by mouth every 6 (six) hours as needed for nausea or vomiting. 30 tablet 06/05/2023 Active QUEtiapine (SEROqueL) 25 mg tablet Take 1 tablet (25 mg total) by mouth at bedtime as needed (sleep). 30 tablet 08/23/2024 Active Active Problems Problem Noted Date Diagnosed Date Bleeding Dysfunctional Uterine 10/22/2023 Overview (07/13/2024): Utilizing Nexplanon, which was placed on 01/12/2023. Nexplanon removed today 07/13/2024 due to continued breakthrough bleeding. Candidiasis 10/22/2023 Overview (01/21/2024): Currently asymptomatic. Will schedule f/u with recurrent symptoms. Hemorrhage Gastrointestinal 05/14/2023 Infectious Mononucleosis Unspecified Without Com plication 05/14/2023 Pharyngitis Acute 05/14/2023 Stomatitis 05/14/2023 Underweight 05/14/2023 Anxiety 04/26/2021 Encounters * This document contains information received from the source organization and may not represent a complete record from that organization. Date Type Department Care Team Description 07/13/2024 11:00 AM FLIGHT SURGEON Office Visit Department of Obstetrics and Gynecology in [place], [place] [address] [address] Nessa Trivedi, COREY, C.N.P. Bleeding Dysfunctional Uterine (Primary Dx); Subdermal Implantable Contraceptive Removal Discharge Disposition: Home or Self Care from Last 3 Months Immunizations Immunization Administration Dates Next Due 9vHPV 01/14/2022,10/28/2021,06/12/2021 DTaP (Infanrix, Tripedia) 03/28/2008,,03/23/2003,01/24/2003, DTaP / Hep B / IPV (Pediarix) 01/24/2003, 003 DTaP / Hib 12/26/2003 H1N1 All Forms 07/19/2009 HepA Pediatric/Adolescent 01/05/2014,12/15/2012 HepB Pediatric/Adolescent 07/03/2003,01/24/2003, 2002,2002 Hib (PRP-OMP) (PedvaxHIB) 12/26/2003,07/03/2003, 01/24/2003,2002 Hib (PRP-T) (ACTHIB, HIBERIX) 01/24/2003, 003 Hib-HepB 07/03/2003 IPV 03/28/2008,12/26/2003,01/24/2003 ,2002 MCV4 (Menactra)(Discontinued) 04/26/2021, 015 MMR 03/28/2008,09/29/2003 PCV7 (discontinued) 01/24/2003,2002 Tdap 12/15/2012 ANYI 03/28/2008,09/29/2003 Family History Medical History Relation Name Comments Multiple sclerosis Mother Relation Name Status Comments Mother Social History Tobacco Use Types Packs/Day Years Used Date Smoking Tobacco: Never Smokeless Tobacco: Never Tobacco Cessation:Counseling Given: Not Answered [facility] Sopheonities Answer Date Recorded In the past 12 months has e [employer], gas, oil, or water [employer] threatened to shut off services in your home? No 07/08/2024 Humiliation, Afraid, Rape, and Kick questionnair e Answer Date Recorded Within the last year, have y ou been afraid of your partner or ex-partner? No 03/06/2023 Within the last year, have y ou been humiliated or emotionally abused in other ways by your partner or ex-partner? No Within the last year, have y ou been kicked, hit, slapped, or otherwise physically hurt by your partner or ex-partner? No 03/06/2023 Within the last year, have y ou been raped or forced to have any kind of sexual activity by your partner or ex-partner? No 03/06/2023 Social Connection and Isolat ion Panel [NHANES] Answer Date Recorded In a typical week, how many times do you talk on the phone with family, friends, or neighbors? More than three times a week 06/07/2021 How often do you get togethe r with friends or relatives? More than three times a week 06/07/2021 How often do you attend chur ch or hinduism services? More than 4 times per year 06/07/2021 Do you belong to any clubs o r organizations such as yarsanism groups, unions, fraternal or athletic groups, or school groups? No 06/07/2021 How often do you attend meet ings of the clubs or organizations you belong to? Never 06/07/2021 Are you , , di vorced, , never , or living with a partner? Never 06/07/2021 AUDIT-C Answer Date Recorded Q1: How often do you have a drink containing alc ohol? Never 06/07/2021 Average Number of Drinks Not on file 021 Frequency of Binge Drinking Not on file 03/2021 Overall Financial Resource Strain (CARDIA) Answe r Date Recorded How hard is it for you to pa y for the very basics like food, housing, medical care, and heating? Not hard at all 03/06/2023 PHQ-2 Answer Date Recorded PHQ-2 Score 3 07/09/2023 [facility] - Occupational Stress Questionnaire Answer Date Recorded Do you feel stress - tense, restless, nervous, or anxious, or unable to sleep at night because your mind is troubled all the time - these days? Rather much 06/07/2021 Exercise Vital Sign Answer Date Recorde d On average, how many days pe r week do you engage in moderate to strenuous exercise (like a brisk walk)? 2 days 07/08/2024 On average, how many minutes do you engage in exercise at this level? 60 min 07/08/2024 Hunger Vital Sign Answer Date Recorded Within the past 12 months, y ou worried that your food would run out before you got the money to buy more. Never true 07/08/20 24 Within the past 12 months, t he food you bought just didn't last and you didn't have money to get more. Never true 07/08/2024 PRAPARE - Transportation Answer Date Re corded In the past 12 months, has l ack of transportation kept you from medical appointments or from getting medications? No 03/2024 In the past 12 months, has l ack of transportation kept you from meetings, work, or from getting things needed for daily living? No 07/08/2024 Depression Answer Date Recor ded PHQ-9 Total Score (max 27) 12 07/09 Nutrition Answer Date Recorded On average, how many serving s of fruits and vegetables do you eat per day (serving size is equal to 1 cup or approximately the size of a tennis ball)? 0-2 07/08/2024 Dental Answer Date Recorded Dental: Regular Dentist Yes 09/11/19 Employment Answer Date Recorded Employment status Employed and actively working without restrictions 07/08/2024 Housing Stability Answer Date Recorded What is your living situation today? I have a [facility] place to live 07/08/2024 Education Answer Date Recorded What is the highest level of school you have completed or the highest degree you have received? 12th grade 06/07/2021 Comments No Sex and Gender Information Value Date Recorded Sex Assigned at Female 06/12/2021 9:34 AM CDT Legal Sex Female 5:31 PM FLIGHT SURGEON Gender Identity Female 06/12/2021 9:34 AM CDT Sexual Orientation Straight 06/12/2021 9: 34 AM CDT Last Filed Vital Signs Vital Sign Reading Time Taken Comments Blood Pressure 102/71 07/13/2024 10:44 AM FLIGHT SURGEON Pulse 103 07/09/2023 10:57 AM FLIGHT SURGEON Temperature 36.6 C (97.9 F) 07/09/2023 10:57 AM FLIGHT SURGEON Respiratory Rate 20 07/09/2023 10:57 AM FLIGHT SURGEON Oxygen Saturation 100% 07/13/2017 7:38 PM FLIGHT SURGEON Inhaled Oxygen Concentration - - Weight 55.8 kg (123 lb 0.3 oz) 07/13/2024 10:44 AM FLIGHT SURGEON Height 170.7 cm (5' 7.21) 06/05/2023 1:15 PM CD T Body Mass Index 19.15 06/05/2023 1:15 PM CDT Plan of Treatment Upcoming Encounters Date Type Department Care Team (Late st Contact Info) Description 10/13/2024 11:00 AM FLIGHT SURGEON Office Visit Department of Obstetrics and Gynecology in [place], [place] [address], [place] [address] Nessa Trivedi, MOLDING SUPERVISOR, C.N.P. [address] [address] Health Maintenance Due Date Last Done Comments Cervical/Vaginal Cancer Screening 2002 Chlamydia and Gonorrhea Screening 2002 HIV Screening 2002 Hepatitis C Screening 2002 Tobacco Cessation counseling 2002 HPV Vaccines (3 - 3-dose series) 04/08/2022 01/14/2022, 10/28/2021, 06/12/2021 DTaP,Tdap,and Td Vaccines (7 - Td or Tdap) 12/15/2022 12/15/2012, 03/28/2008, 12/26/2003, Additional history exists Glucose Test for Med Monitoring 04/27/2024 04/27/2023, 11/12/2022, 08/22/2022, Additional history exists COVID-19 Vaccine ( - 2023- season) 2024 Influenza Vaccine (#1) 2024 Depression Screening (Annual PHQ-2) 08/31/2024 Pneumococcal vaccine (0-49 years) Aged Out 01/24/2003, 2002 No longer eligibl e based on patient's age to complete this topic Hepatitis B Vaccines Completed 07/03/2003, 07/03/2003, 01/24/2003, Additional history exists IPV Vaccines Completed 03/28/2008, 11/30, 01/24/2003, Additional history exists Varicella Vaccines Completed 03/28/2008, 09/29/2003 Meningococcal Vaccine Completed 04/26/2021, 015 Medical Devices Explanted Type Area Hunter Skin Diver Device Identifier Shelf Expiration Date Model / Serial / Lot Subdermal Contraceptive Implant- 3 Implanted:2022 (Quantity not on file) Explanted:Qty: 1 on 07/13/2024 by Nessa Trivedi APRN, C.N.P. Subdermal Contraceptive Implant Arm Procedures Procedure Name Priority Date/Time Associated Diagnosis Comments [facility] RMVL DRUG IMPL Routine 07/13/2024 11: 00 AM FLIGHT SURGEON Bleeding Dysfunctional Uterine Subdermal Implantable Contraceptive Removal COMPREHENSIVE METABOLIC PANEL, S/P Routine 08/22/2022 2:28 PM FLIGHT SURGEON Bleeding Dysfunctional Uterine from Last 3 Months or Most Recently Relevant to Health Maintenance Results * VA RMVL DRUG IMPL (07/13/2024 11:00 AM FLIGHT SURGEON) Narrative MMODAL - 07/13/2024 11:00 AM FLIGHT SURGEON Nessa Trivedi APRN, C.N.P. 07/13/2024 11:26 AM Subdermal Contraceptive Device Performed by: Nessa Trivedi APRN C.N.P. Authorized by: Nessa Trivedi APRN, C.N.P. PROCEDURE DETAILS Procedure: removal Implant removal location: left arm Palpated location of implant: yes Small incision made: yes Implant removed intact: yes Implant shown to patient prior to disposal: yes Site closed by usual method: yes Site dressed and pressure bandage applied: yes Reason for removal of implant: abnormal bleeding CONSENT Consent obtained: written (Risks, benefits and alternatives were discussed and a written Informed Consent was obtained. Please see Informed Consent form for further details.) UNIVERSAL PROTOCOL All relevant documentation and testing were reviewed and available. All required blood products, implants, devices and or special equipment were made available as applicable. Pre-procedure verification was conducted and the correct site was marked if required. A fire risk and smoke assessment were done as applicable. The procedural time-out to verify correct patient, correct side/site, and procedure was conducted prior to performing the procedure and confirmed in a procedural pause. PRE-PROCEDURE DETAILS Assessment - reasonably exclude based on: PREG criteria Indication: removal of non-biodegradable drug implant Appropriate hand hygiene, gown, cap, mask, protective eyewear, sterile gloves, skin preparation, sterile drape, and strict aseptic technique were utilized as applicable for the procedure.: yes Site preparation: povidone-iodine and alcohol SEDATION / ANESTHESIA Anesthesia method: local infiltration Local infiltrate type: lidocaine POST-PROCEDURE DETAILS Procedure completed successfully: yes Complications: no apparent complications Comments Nexplanon removal us Nessa Trivedi APRN, C.N.P. OB GYNE ORDERABLE S Final Result MMODAL NA * Comprehensive Metabolic Panel (08/22/2022 2:28 PM FLIGHT SURGEON) Potassium, P 4.5 3.6 - 5.2 mmol/L 08/22/2022 6:04 PM FLIGHT SURGEON OWAT Sodium, P 143 135 - 145 mmol/L 08/22/2022 6:04 PM FLIGHT SURGEON OWAT Chloride, P 102 98 - 107 mmol/L 08/22/2022 6:04 PM FLIGHT SURGEON OWAT Bicarbonate, P 28 22 - 29 mmol/L 08/22/2022 6:04 PM FLIGHT SURGEON OWAT Anion Gap, P 13 7 - 15 08/22/2022 6:04 PM FLIGHT SURGEON OWAT BUN (Blood Urea Nitrogen), P 8 6 - 21 mg/dL 08/22/2022 6:04 PM FLIGHT SURGEON OWAT Creatinine 0.61 0.59 - 1.04 mg/dL 08/22/2022 6:04 PM FLIGHT SURGEON OWAT Estimated GFR (eGFR) >90 >=60 mL/min/BS A 08/22/2022 6:04 PM FLIGHT SURGEON OWAT Comment: Estimated GFR calculated using the 2020 CKD_EPI creatinine equation. Calcium, Total, P 9.9 8.6 - 10.0 mg/dL 08/22/2022 6:04 PM FLIGHT SURGEON OWAT Glucose, P 90 70 - 140 mg/dL 08/22/2022 6:04 PM FLIGHT SURGEON OWAT Protein, Total, P 7.1 6.3 - 7.9 g/dL 08/22/2022 6:04 PM FLIGHT SURGEON OWAT Albumin, P 4.9 3.5 - 5.0 g/dL 08/22/2022 6:04 PM FLIGHT SURGEON OWAT Aspartate Aminotransferase (AST), P 27 8 - 43 U/L 08/22/2022 6:04 PM FLIGHT SURGEON OWAT Alkaline Phosphatase, P 69 35 - 104 U/L 08/22/2022 6:04 PM FLIGHT SURGEON OWAT Alanine Aminotransferase (ALT), P 16 7 - 45 U/L 08/22/2022 6:04 PM FLIGHT SURGEON OWAT Bilirubin, Total, P 0.3 <=1.2 mg/dL 08/22/2022 6:04 PM FLIGHT SURGEON OWAT Blood (Blood, Venous) 08/22/2022 2:28 PM FLIGHT SURGEON 08/22/2022 5:24 PM FLIGHT SURGEON us Efraín Lynn M.D. LAB BLOOD ADD-ON Final Resul t [facility] [address] [place] [address], [place] OWAT [facility] in [place] [address] [place] [address] from Last 3 Months or Most Recently Relevant to Health Maintenance Insurance [facility] [address] [place] [id number] Care Teams Environmental Engineering Intern Relationship Specialty Start Date End Date Elsewhere, Pcp PCP - General Humanities Coordinator 09/27/19
[2024-10-07 22:21] VITALS: BP 119/81; PULSE 99; RESP 16; TEMP 36.9; O2SAT 99; BMI 19.4
[2024-10-07 22:27] LABS: Appearance Urine Clear (Clear); Bilirubin Urine Negative (Negative); Blood Urine Negative (Negative); Color Urine Yellow (Yellow); Glucose Urine Negative (Negative); Ketones Urine Trace (Negative); Leukocyte Esterase Urine Trace (Negative); Nitrite Urine Negative (Negative); Protein Urine Negative (Negative); Specific Gravity Urine 1.025 (1.000-1.030); Urobilinogen Urine 0.2 (0.2-1.0); pH Urine 6.5 (5.0-8.5)
[2024-10-07 22:34] LABS: RBC Urine 0-2 (0-2); WBC Urine 0-2 (0-5)
[2024-10-07 22:35] LABS: Bacteria Urine Few
--- NOTE | 2024-10-07 22:56 | ED_ITS ---
HPI - General Adult General Time Seen by Provider: 22:57 Date Seen: 10/07/24 Chief complaint: Flank Pain Stated complaint: right side back pain Time Seen by Provider: 10/07/24 22:55 Source: patient and RN notes reviewed Mode of arrival: ambulatory Limitations: no limitations History of Present Illness HPI narrative: This 24-year-old female is coming in with right-sided abdominal pain. It started on Thursday. It is sharp at times. Her appetite has been diminished but she has been forcing herself to eat. Nausea at times but no vomiting. She has not had a bowel movement for about a week but she states this is not abnormal for her. She used to be on oral contraceptives but had her menstrual cycle for about 3 years on it, states she went off. She states she is not sexually active. There has been no fevers or chills. She states she has been getting shooting pain in her right side when urinating. She states she also gets a month least infection. She is not known to have had pyelonephritis or kidney infection before. She denies any trauma. Symptoms have been present going on 5 days now. Related Data Home Medications ?Medication ?Instructions ?Recorded ?Confirmed escitalopram oxalate 10 mg tablet 10 mg PO DAILY 05/04/23 05/11/23 levonorgestrel 0.15 mg-ethinyl 1 tab PO DAILY 05/04/23 05/11/23 estradiol 30 mcg tablets,3 mos pack(91) famotidine 20 mg tablet 20 mg PO DAILY 05/11/23 05/11/23 Previous Rx's ?Medication ?Instructions ?Recorded Magic Mouthwash 5 - 10 ml PO QID PRN #120 mL 05/02/23 (Lidocaine/Benadryl/Maalox) 120 mL suspension peg 3350-electrolytes 236 240 ml PO Q10M #4,000 mL 10/08/24 gram-22.74 gram-6.74 gram-5.86 gram solution (GaviLyte-G) Allergies Allergy/AdvReac Type Severity Reaction Status Date / Time cat dander Allergy Mild Itchiness Verified 05/11/23 17:45 Review of Systems Status of ROS: Reports: 6 or more systems reviewed and unremarkable except as noted in History and below PFSH PFSH Social History Smoking Status: Current every day smoker Do you use any of these nicotine containing products: E-Cigarettes and Vaping Products Second hand tobacco smoke exposure: No How often do you have a drink containing alcohol: never How often do you have six or more drinks on one occasion: Never AUDIT-C Alcohol total score: 0 Non-prescribed substance use: denies use service: No Exam Const: Vital Signs, click to edit/add: Vital Signs - 24 hr 10/07/24 22:21 Temperature 98.5 F Pulse Rate [Right Radial] 99 Respiratory Rate 16 Blood Pressure [Ri ght Upper Arm] 119/81 Pulse Oximetry 99 Oxygen Delivery Me thod Room Air This 24-year-old female is alert, interactive, no apparent distress. She is of slender frame. Pupils equal round reactive, sclera clear, symmetrical facial function, speech is normal. Lungs are clear, good air entry, no wheezing or crackles. She does complain of some right CVA tenderness. No skin changes on inspection of her back or abdomen. CV regular rate and rhythm no murmur, normal S1-S2. Abdomen is slender, bowel sounds are active, no organomegaly, no rebound or guarding. She states she has pain in the right upper quadrant but is not significantly tender at all. I do not feel any masses. No rash noted. Documenting provider has reviewed patient's vital signs: yes Course Course ED Course: Have reviewed with patient that the urinalysis collected by urine staff on arrival is really not suggestive of infection. With her history of no stool output for over a week and her active sound in bowels, do wonder about constipation. Will obtain basic blood work and proceed with a flat and upright of her abdomen. There is anything concerning on her lab work may need to consider more advanced imaging. Reevaluation(s) Time of Reevaluation #1: 00:04 Reevaluation #1: Reviewed with patient all her labs are normal the preliminary reading by myself on her abdominal film is constipation. She admitted that she has been constipated in dealing with this since age 9. She takes MiraLax daily, states she is not missing any doses. Did bring up Mag citrate and senna, she states senna will not help her. She states she has done a colonoscopy prep, last time it maybe a few months ago. She states she has been to GI. Reviewed with her that there are other prescription medicines that can be used in constipation now, do think she should follow up in clinic and get referred back to GI. Did ask her why she did not review more of her constipation history with this on arrival, she shrugged her shoulders in stated she did not really know why. At this time, she has no obstructive symptoms such as vomiting. Do think she is safe to discharge to home to follow-up outpatient. I will send in a colonoscopy prep and Ying she does decide to try this. Vital Signs Vital signs: Initial Vital Signs Temperature 98.5 F 10/07/24 22:21 Temperature Source Temporal Artery Scan 10/07/24 22:21 Pulse Rate 99 10/07/24 22:21 Pulse Rhythm Regular 10/07/24 22:21 Respiratory Rate 16 10/07/24 22:21 Blood Pressure 119/81 10/07/24 22:21 Blood Pressure Mean 93 10/07/24 22:21 Pulse Oximetry 99 10/07/24 22:21 Oxygen Delivery Method Room Air 10/07/24 22:21 Vital Signs Temperature 98.5 F 10/07/24 22:21 Pulse Rate 99 10/07/24 22:21 Respiratory Rate 16 10/07/24 22:21 Blood Pressure 119/81 10/07/24 22:21 Pulse Oximetry 99 10/07/24 22:21 Oxygen Delivery Method Room Air 10/07/24 22:21 Temperature 98.5 F 10/07/24 22:21 Pulse Rate 99 10/07/24 22:21 Respiratory Rate 16 10/07/24 22:21 Blood Pressure 119/81 10/07/24 22:21 Pulse Oximetry 99 10/07/24 22:21 Oxygen Delivery Method Room Air 10/07/24 22:21 Medical Decision Making Lab Data Lab results reviewed: Yes I reviewed the patient's lab results Labs: Lab Results 10/07/24 10/07/24 10/07/24 Range/Units 22:14 23:01 23:11 WBC 8.90 (4.50-11.00) K/uL RBC 4.45 (4.00-5.20) m/uL Hgb 13.0 (12.0-16.0) gm/dL Hct 37.5 (33.0-51.0) % MCV 84 (80-100) fL MCH 29 (26-34) pg MCHC 35 (32-36) gm/dL RDW Coeff of Ness 12.2 (11.5-15.5) % Plt Count 346 (140-440) K/uL Neut % (Auto) 45.8 (42.0-72.0) % Lymph % (Auto) 43.3 (20-44) % Early % (Auto) 8.5 (0.0-11.0) % Eos % (Auto) 2.0 (0.0-7.0) % Baso % (Auto) 0.3 (0.0-3.0) % Neut # (Auto) 4.07 (1.7-7.0) K/uL Lymph # (Auto) 3.85 H (0.90-2.90) K/uL Early # (Auto) 0.80 (0.00-0.90) K/UL Eos # (Auto) 0.18 (0.00-0.50) K/uL Baso # (Auto) 0.03 (0.00-0.30) K/uL Abs Immat Gran (auto) 0.01 (0.00-0.30) K/uL Imm/Tot Granulo (auto) 0.1 % Sodium 137 (135-149) mmol/L Potassium 3.6 (3.6-5.1) mmol/L Chloride 104 (96-114) mmol/L Carbon Dioxide 26 (20-32) mmol/L Anion Gap 7 (7-15) mEq/L BUN 9 (5-24) mg/dL Creatinine 0.6 (0.5-1.5) mg/dL Estimated Creat Clear 126.38 Estimated GFR 130 ml/min Glucose 93 (60-115) mg/dL Lactate 1.6 (0.5-1.9) mmol/L Calcium 8.9 (8.4-10.6) mg/dL Total Bilirubin 0.3 (0.1-1.5) mg/dL Direct Bilirubin 0.2 (0.0-0.5) mg/dL AST 32 (12-35) U/L ALT 15 (4-35) U/L Alkaline Phosphatase 54 (40-150) U/L C-Reactive Protein < 0.5 L (0.5-1.0) mg/dL Total Protein 6.6 (6.0-8.3) g/dL Albumin 4.6 (3.3-5.0) g/dL Urine Color Yellow (Yellow) Urine Appearance Clear (Clear) Urine pH 6.5 (5.0-8.5) Ur Specific [place] 1.025 (1.000-1.030) Urine Protein Negative (Negative) Urine Glucose (UA) Negative (Negative) Urine Ketones Trace A (Negative) Urine Blood Negative (Negative) Urine Nitrite Negative (Negative) Urine Bilirubin Negative (Negative) Urine Urobilinogen 0.2 (0.2-1.0) Ur Leukocyte Esterase Trace A (Negative) Urine RBC 0-2 (0-2) Urine WBC 0-2 (0-5) Ur Squamous Epith Cells None (None-Few) Urine Bacteria Few A (None) Urine HCG, Qual Negative (Negative) Lab Acknowledgement Test Added Discharge Plan Discharge Clinical Impression: Constipation Qualifiers: Constipation type: unspecified constipation type Qualified Code(s): K59.00 - Constipation, unspecified Patient Disposition: Home, Self-Care Condition: Stable Instructions: Constipation (ED), High Fiber Diet (ED) Additional Instructions: Can try the colonoscopy prep. Otherwise, follow up in clinic with your primary care provider this next week as soon as possible. Try to seek GI referral again, see if there are other things that you potentially have not tried for constipation. Activity Level: No Restrictions Prescriptions: New peg 3350-electrolytes [GaviLyte-G] 236-22.74-6.74 -5.86 gram recon soln 240 ml PO Q10M Qty: 4000 0RF Rx Instructions: until fecal effluent is clear No Action Magic Mouthwash (Lidocaine/Benadryl/Maalox) 120 mL suspension 5 - 10 ml PO QID PRNQty: 120 1RF Rx Instructions: Lidocaine Viscous 2 % mucosal solution 40 mL; Maalox 200 mg-200 mg-20 mg/5 mL oral suspension 40 mL; Benadryl 12.5 mg/5 mL oral elixir 40 mL; Per 120 mL SWISH AND SPIT. MAY COMPOUND IF FIRST PRODUCT IS NOT AVAILABLE. escitalopram oxalate 10 mg tablet 10 mg PO DAILY levonorgestrel-ethinyl estrad 0.15 mg-30 mcg (91) tablets,dose pack,3 month 1 tab PO DAILY famotidine 20 mg tablet 20 mg PO DAILY Follow Up/Referrals: Zoltan Copeland PA-C [Primary Care Provider] - Stand Alone Forms: [employer] Info Instructions
--- NOTE | 2024-10-07 23:02 | CRLHL7_ITS ---
For Patients: As a result of the Century Cures Act, medical imaging exams and procedure reports are released immediately into your electronic medical record. You may view this report before your referring provider. If you have questions, please contact your health care provider. Indication: Right-sided abdominal pain, nausea Technique: Supine and upright views of the abdomen and pelvis Comparison: None Findings/Impression: Nonspecific, nonobstructive bowel gas pattern with no acute radiographic abnormality appreciated. Dictated by Jose E Zimmer MD @ 10/08/2024 12:16:30 AM (Electronically Signed)
[2024-10-07 23:04] LABS: Ur HCG Qualitative* Negative (Negative)
--- OUTSIDE RECORDS SUMMARY | 2024-10-07 23:09 | XMS_ITS | Clinical Summary ---
Author Organization [facility] Address [address] [place] [address] Care Team Providers Care County Tax Assessor Name Role Phone Elsewhere, Pcp Primary Care Provider Unavailabl e Source Comments Patient records contain information from all sites at [facility]. For routine questions regarding patient records, call [phone] during business hours, M-F 8:00 AM - 5:00 PM Central Time. Record requests for emergency care only can be directed to [phone] at any time.[facility] Allergies Active Allergy Reactions Criticality Noted Date [...] Department Care Team Description 07/13/2024 11:00 AM REAL ESTATE SPECIALIST Office Visit Department of Obstetrics and Gynecology in [place], [place] [address] [address] Nessa Trivedi, COREY, C.N.P. Bleeding [...] Tobacco: Never Tobacco Cessation:Counseling Given: Not Answered [facility] [employer] Answer Date Recorded In the past 12 months has e Teamwork Retail, gas, oil, or water [employer] threatened to shut off services in your [...] often do you attend chur ch or adventism services? More than 4 times per year 06/07/2021 Do you belong to any clubs o r organizations such as advent groups, unions, fraternal or athletic groups, or [...] Answer Date Recorded PHQ-2 Score 3 07/09/2023 [facility] - Occupational Stress Questionnaire Answer Date Recorded [...] your living situation today? I have a [facility] place to live 07/08/2024 Education Answer Date Recorded What is the highest level of school you have completed or the highest degree you have received? 12th grade 06/07/2021 Comments No Sex and Gender Information Value Date Recorded Sex Assigned at Female 06/12/2021 9:34 AM CDT Legal Sex Female 5:31 PM REAL ESTATE SPECIALIST Gender Identity Female 06/12/2021 9:34 AM CDT Sexual Orientation Straight 06/12/2021 9: 34 AM CDT Last Filed Vital Signs Vital Sign Reading Time Taken Comments Blood Pressure 102/71 07/13/2024 10:44 AM REAL ESTATE SPECIALIST Pulse 103 07/09/2023 10:57 AM REAL ESTATE SPECIALIST Temperature 36.6 C (97.9 F) 07/09/2023 10:57 AM REAL ESTATE SPECIALIST Respiratory Rate 20 07/09/2023 10:57 AM REAL ESTATE SPECIALIST Oxygen Saturation 100% 07/13/2017 7:38 PM REAL ESTATE SPECIALIST Inhaled Oxygen Concentration - - Weight 55.8 kg (123 lb 0.3 oz) 07/13/2024 10:44 AM REAL ESTATE SPECIALIST Height 170.7 cm (5' 7.21) 06/05/2023 1:15 PM CD T Body Mass Index 19.15 06/05/2023 1:15 PM CDT Plan of Treatment Upcoming Encounters Date Type Department Care Team (Late st Contact Info) Description 10/13/2024 11:00 AM REAL ESTATE SPECIALIST Office Visit Department of Obstetrics and Gynecology in [place], [place] [address], [place] [address] Nessa Trivedi, TESTING SPECIALIST, C.N.P. [address], [place] [address] Health Maintenance Due Date Last [...] 04/26/2021, 015 Medical Devices Explanted Type Area Trial Lawyer Device Identifier Shelf Expiration Date Model / Serial / Lot Subdermal Contraceptive Implant- 3 Implanted:2022 (Quantity not on file) Explanted:Qty: 1 on 07/13/2024 by Nessa Trivedi APRN, C.N.P. Subdermal Contraceptive Implant Arm Procedures Procedure Name Priority Date/Time Associated Diagnosis Comments HI RMVL DRUG IMPL Routine 07/13/2024 11: 00 AM REAL ESTATE SPECIALIST Bleeding Dysfunctional Uterine Subdermal Implantable Contraceptive Removal COMPREHENSIVE METABOLIC PANEL, S/P Routine 08/22/2022 2:28 PM REAL ESTATE SPECIALIST Bleeding Dysfunctional Uterine from Last 3 Months or Most Recently Relevant to Health Maintenance Results * HI RMVL DRUG IMPL (07/13/2024 11:00 AM REAL ESTATE SPECIALIST) Narrative MMODAL - 07/13/2024 11:00 AM REAL ESTATE SPECIALIST Nessa Trivedi APRN, C.N.P. 07/13/2024 11:26 AM [...] * Comprehensive Metabolic Panel (08/22/2022 2:28 PM REAL ESTATE SPECIALIST) Potassium, P 4.5 3.6 - 5.2 mmol/L 08/22/2022 6:04 PM REAL ESTATE SPECIALIST OWAT Sodium, P 143 135 - 145 mmol/L 08/22/2022 6:04 PM REAL ESTATE SPECIALIST OWAT Chloride, P 102 98 - 107 mmol/L 08/22/2022 6:04 PM REAL ESTATE SPECIALIST OWAT Bicarbonate, P 28 22 - 29 mmol/L 08/22/2022 6:04 PM REAL ESTATE SPECIALIST OWAT Anion Gap, P 13 7 - 15 08/22/2022 6:04 PM REAL ESTATE SPECIALIST OWAT BUN (Blood Urea Nitrogen), P 8 6 - 21 mg/dL 08/22/2022 6:04 PM REAL ESTATE SPECIALIST OWAT Creatinine 0.61 0.59 - 1.04 mg/dL 08/22/2022 6:04 PM REAL ESTATE SPECIALIST OWAT Estimated GFR (eGFR) >90 >=60 mL/min/BS A 08/22/2022 6:04 PM REAL ESTATE SPECIALIST OWAT Comment: Estimated GFR calculated using the 2020 CKD_EPI creatinine equation. Calcium, Total, P 9.9 8.6 - 10.0 mg/dL 08/22/2022 6:04 PM REAL ESTATE SPECIALIST OWAT Glucose, P 90 70 - 140 mg/dL 08/22/2022 6:04 PM REAL ESTATE SPECIALIST OWAT Protein, Total, P 7.1 6.3 - 7.9 g/dL 08/22/2022 6:04 PM REAL ESTATE SPECIALIST OWAT Albumin, P 4.9 3.5 - 5.0 g/dL 08/22/2022 6:04 PM REAL ESTATE SPECIALIST OWAT Aspartate Aminotransferase (AST), P 27 8 - 43 U/L 08/22/2022 6:04 PM REAL ESTATE SPECIALIST OWAT Alkaline Phosphatase, P 69 35 - 104 U/L 08/22/2022 6:04 PM REAL ESTATE SPECIALIST OWAT Alanine Aminotransferase (ALT), P 16 7 - 45 U/L 08/22/2022 6:04 PM REAL ESTATE SPECIALIST OWAT Bilirubin, Total, P 0.3 <=1.2 mg/dL 08/22/2022 6:04 PM REAL ESTATE SPECIALIST OWAT Blood (Blood, Venous) 08/22/2022 2:28 PM REAL ESTATE SPECIALIST 08/22/2022 5:24 PM REAL ESTATE SPECIALIST us Efraín Lynn M.D. LAB BLOOD ADD-ON Final Resul t [facility] [address] [place] [address], [place] OWAT [facility] [place] [address] [place] [address] from Last 3 Months or Most Recently Relevant to Health Maintenance Insurance [facility] [address] [place] [phone] Care Teams County Tax Assessor Relationship Specialty Start Date End Date Elsewhere, Pcp PCP - General Fern Picker 09/27/19
--- OUTSIDE RECORDS SUMMARY | 2024-10-07 23:09 | XMS_ITS | Clinical Summary ---
Author Organization [facility] Address [place], [place] [address] Care Team Providers Care Elevator Repairer Helper Name Role Phone Zoltan Copeland Primary Care Provider [phone] Allergies Active Allergy Reactions Criticality Noted Date [...] Due DTaP 03/28/2008, 4,03/23/2003,01/24,2002 DTaP-HIB (TriHIBIT) 12/26/2003 [id number] (Pediarix) 01/24/2003,2002 HIB PRP-OMP (PedvaxHIB) 12/26/2003,07/03,01/24/2003,11/22 HIB [...] on file Legal Sex Female 5:26 AM TREASURY AGENT Gender Identity Not on file Sexual Orientation [...] st Contact Info) Description 10/12/2024 12:00 PM TREASURY AGENT Office Visit [facility] [address] [place] [address] Efraín Lynn MD [address] [place] [address] Health Maintenance Due Date Last [...] complete this topic Tdap Completed 12/15/2012 Insurance [facility] [address] [facility] [place] [id number] Care Teams Elevator Repairer Helper Relationship Specialty Start Date End Date Zoltan Copeland PA [address] [facility] [place] [address] PCP - General Physician Information Technology Project Manager 05/02/23
[2024-10-07 23:12] LABS: Lactate* 1.6 mmol/L (0.5-1.9)
[2024-10-07 23:14] LABS: Basophils Absolute Auto 0.03 K/uL (0.00-0.30); Basophils Percent Auto 0.3 % (0.0-3.0); Eosinophils Absolute Auto 0.18 K/uL (0.00-0.50); Hematocrit 37.5 % (33.0-51.0); Immature Granulocytes Abs Auto 0.01 K/uL (0.00-0.30); Immature Granulocytes Pct Auto 0.1 %; Lymphocytes Absolute Auto 3.85 K/uL (0.90-2.90); Lymphocytes Percent Auto 43.3 % (20-44); Mean Corpuscular HGB Conc 35 gm/dL (32-36); Mean Corpuscular Hemoglobin 29 pg (26-34); Mean Corpuscular Volume 84 fL (80-100); Monocytes Percent Auto 8.5 % (0.0-11.0); Neutrophils Absolute Auto 4.07 K/uL (1.7-7.0); Neutrophils Percent Auto 45.8 % (42.0-72.0); Platelet Count* 346 K/uL (140-440); RDW Coefficient of Variation % 12.2 % (11.5-15.5); Red Blood Count 4.45 m/uL (4.00-5.20)
[2024-10-07 23:16] LABS: Albumin* 4.6 g/dL (3.3-5.0); Chloride* 104 mmol/L (96-114); Sodium* 137 mmol/L (135-149)
[2024-10-07 23:17] LABS: Potassium* 3.6 mmol/L (3.6-5.1)
[2024-10-07 23:18] LABS: Creatinine* 0.6 mg/dL (0.5-1.5); Est. Creatinine Clearance* 126.38; Estimated Glomerular Filt Rate 130 ml/min
[2024-10-07 23:19] LABS: Alanine Aminotransferase* 15 U/L (4-35); Alkaline Phosphatase* 54 U/L (40-150); Anion Gap 7 mEq/L (7-15); Aspartate Amino Transferase* 32 U/L (12-35); Bilirubin Direct* 0.2 mg/dL (0.0-0.5); Bilirubin Total* 0.3 mg/dL (0.1-1.5); Blood Urea Nitrogen* 9 mg/dL (5-24); Carbon Dioxide* 26 mmol/L (20-32); Glucose* 93 mg/dL (60-115); Total Protein* 6.6 g/dL (6.0-8.3)
[2024-10-07 23:20] LABS: Calcium* 8.9 mg/dL (8.4-10.6)
[2024-10-07 23:24] LABS: C Reactive Protein* < 0.5 mg/dL (0.5-1.0)
[2024-10-07 23:25] LABS: Slide Review Reflex No
== END 2024-10-08 00:22 | disposition home or self-care (01) ==
PROVIDERS: Emergency Provider Family Medicine; PCP Physician Assistant
DX: K59.00 Constipation, unspecified (principal)
CPT/HCPCS: 36415; 74019; 80053; 81001; 81025; 82248; 83605; 85025; 86140; 87086; 99283; 99284

== ENCOUNTER 2025-06-01 00:16 | Emergency (ER) | payer BC, SELFPAY ==
--- OUTSIDE RECORDS SUMMARY | 2022-11-25 10:58 | XMS_ITS | Continuity of Care Document ---
Author Organization [facility] Address [address] [address] [place] [address] Phone Care Team Providers Care Die Cast Die Maker Name Role Phone Bridger Pearson MD, Sergio Barron Unavailabl e Advance Directives Directive Yes / No Effective Date File Name No Information Encounters Encounter Description Practice Location Reason(s) For Visit Diagnoses Date Provider Providers Copied on Encounter [facility], [address] [address], [place], [place], [id number], [place] tel:[phone] [facility] No Information [facility]. [address] [address], [place], [place], [id number], [place]. tel:[phone] Family History Family Member Type Diagnosis Age At Onset No Information Payers Payer name Insurance type Covered democrat ID Authoriza tion(s) No Information Social History Type Description Quantity Date Captured Comments Sex Female Smoking Status No Information Chief Complaint And Reason For Visit No Information Reason For Referral Reason For Referral No Information History Of Present Illness Encounter Date Complaint History Of Prese nt Illness No Information Functional Status Date Functional Assessmen t No Information Instructions Date Instruction Additional Infor mation No Information Assessments Type Assessment Date No Information Patient Care Teams Name Effective Dates (start - stop) Status Members No Information
--- OUTSIDE RECORDS SUMMARY | 2022-11-25 10:58 | XMS_ITS | Continuity of Care Document ---
Author Organization [facility] Address [address] [address] [place] [address] Phone Care Team Providers Care Comic Book Artist Name Role Phone Bridger Pearson MD, Sergio Barron Unavailabl e Advance Directives Directive Yes / No Effective Date File Name No Information Encounters Encounter Description Practice Location Reason(s) For Visit Diagnoses Date Provider Providers Copied on Encounter [facility], [address] [address], [place], [place], [id number], [place] tel:[phone] [facility] No Information [facility]. [address] [address], [place], [place], [id number], [place]. tel:[phone] Family History Family Member Type Diagnosis Age At Onset No Information Payers Payer name Insurance type Covered constitution party ID Authoriza tion(s) No Information Social History [...]
--- OUTSIDE RECORDS SUMMARY | 2025-06-01 00:19 | XMS_ITS | Clinical Summary ---
Author Organization [facility] Address [address] [place] [address] Care Team Providers Care Track Equipment Operator Name Role Phone Zoltan Coepland Primary Care Provider [phone] Allergies Active Allergy Reactions Criticality Noted Date Comments Cat Dander Itching 12/15/2012 Ragweed Pollen *Unknown 07/02/2020 Water eyes, running nose, congestion Medications Pulse OximeterIndication s:COVID For home use. 1 Each 03/07/20 22 Active albuterol HFA (ProAir HFA) 90 mcg/actuation inhalerIndications :Flu-like symptoms Inhale 2 Puffs by mouth every 6 hours if needed for Shortness Of Breath. 1 Each 07/28/20 22 Active Additional Information Patient not taking.Reported on 04/17/2025 fluconazole (DIFLUCAN) 150 mg tabletIndications: Acute otitis externa of right ear, unspecified type Take 1 Tablet (150 mg) by mouth one time if needed (vaginal discharge with antibiotic use) for up to 1 dose. 1 Tablet 08/17/20 22 Active famotidine (PEPCID) 20 mg tabletIndications: Epigastric abdominal pain,Nausea Take 1 Tablet (20 mg) by mouth once daily. 30 Tablet 11/13/19 23 Active Additional Information Patient not taking.Reported on 04/17/2025 ondansetron (ZOFRAN ODT) 4 mg disintegrating tabletIndications: Nausea Place 1 Tablet (4 mg) on the tongue every 8 hours if needed for Nausea/Vomiting. 20 Tablet 11/13/19 23 Active Additional Information Patient not taking.Reported on 04/17/2025 QUEtiapine (SEROQUEL) 25 mg tablet Take 25 mg by mouth once daily if needed. 07/09/20 Active levonorgestrel-eth inyl estradiol (SEASONALE) 0.15 mg-30 [...] mouth two times daily. 20 Tablet 11/09/19 Active Additional Information Patient not taking.Reported on 04/17/2025 HYDROcodone-acetam inophen (5-325 mg/tablet)Indicati ons:Pain, dental Take 1-2 Tablets by mouth every 6 hours if needed for Pain. Max acetaminophen dose: 4000 mg in 24 hrs. 16 Tablet 12/22/19 Active Additional Information Patient not taking.Reported on 04/17/2025 acetaminophen-code ine (TYLENOL #3) 300-30 mg per tablet 04/11/20 Active Active Problems Problem Noted Date Diagnosed Date Gastrointestinal hemorrhage 05/14/2023 Infectious mononucleosis 05/14/2023 Pharyngitis, acute 05/14/2023 Stomatitis 05/14/2023 Underweight 05/14/2023 Anxiety 04/26/2021 Chronic constipation 09/25/2016 Resolved Problems Problem Noted Date Diagnosed Date Resolved Date Encounter for routine child health examination without abnormal findings 05/01/2016 Encounters Date Type Department Care Team Description 04/17/2025 5:51 PM CDT - 04/17/2025 8:18 PM CDT Emergency [address] [address] Geraldine Landry PA Chest pain, unspecified type (Primary Dx); Shortness of breath; Palpitations; Costochondritis Discharge Disposition: Home Self Care 04/17/2025 4:50 PM CDT Office Visit [facility] [address] [facility] [place] [address] Consuelo Negrete PA Chest Pain (Radiates to upper back x 2 days. Patient also states heart is racing. ) 04/17/2025 Travel from Last 3 Months Immunizations Immunization Administration Dates Next Due DTaP 03/28/2008, 4,03/23/2003,01/24,2002 DTaP-HIB (TriHIBIT) 12/26/2003 [id number] (Pediarix) 01/24/2003,2002 HIB PRP-OMP (PedvaxHIB) 12/26/2003,07/03,01/24/2003,11/22 HIB [...] or yelled at (see row info)? No 04/17/2025 Interpersonal Safety Abuse 12 - 18 Not on file 04/17/2025 Interpersonal Safety Ambulatory Vulnerability No t on file 04/17/2025 Comments No Sex and Gender Information Value Date Recorded Sex Assigned at Not on file Legal Sex Female 5:26 AM SOUND ART INSTRUCTOR Gender Identity Not on file Sexual Orientation Not on file Occupation Industry Job Start Date Job End Date Student Not on file Not on file Not on file Obstetrics History Last Filed Vital Signs Vital Sign Reading Time Taken Comments Blood Pressure 143/79 04/17/2025 5:56 PM CDT Pulse 95 04/17/2025 5:56 PM CDT Temperature 37.2 C (98.9 F) 04/17/2025 5:56 PM CDT Respiratory Rate 15 04/17/2025 5:56 PM CDT Oxygen Saturation 96% 04/17/2025 5:56 PM CDT Inhaled Oxygen Concentration - - Weight 55.8 kg (123 lb) 03/15/2024 7:15 PM CDT Height 167.6 cm (5' 6) 03/15/2024 7:15 PM CDT Body Mass Index 19.85 03/15/2024 7:15 PM CDT Plan of Treatment Health Maintenance Due Date Last Done Comments Depression screening for age 12+ 2014 HIV for age 15-65 2017 BMI (ht and wt on same day) for age 18+ 2020 Hepatitis C screening for age 18-79 2020 HPV series for age 9-45 (3 - 3-dose series) 04/08/2022 01/14/2022, 10/28/2021, 06/12/2021 Tetanus booster 12/15/2022 12/15/2012 Pap test for age 21-65 2023 COVID-19 vaccine series ( - season) 2025 Influenza Vaccine (#1) 2025 RSV vaccine for adults or (1 - 1-dose 75+ series) 2077 Pneumococcal series for age 6-49 Aged Out 01/24/2003, 2002 No longer eligibl e based on patient's age to complete this topic Hepatitis B series for 19+ Completed 07/03, 07/03/2003, 01/24/2003, Additional history exists Procedures Procedure Name Priority Date/Time Associated Diagnosis Comments XR CHEST 2 VIEWS PA AND LATERAL STAT 04/17/2025 6:45 PM CDT TSH MONICA 04/17/2025 6:13 PM CDT CBC WITH AUTO DIFFERENTIAL STAT 04/17/2025 6:13 PM CDT ,SERUM QUALITATIVE STAT 04/17/2025 6:13 PM CDT D-DIMER,QUANTITATIVE STAT 04/17/2025 6:13 PM CDT TROPONIN T (HS) ACUTE W/2HR REFLEX STAT 04/17/2025 6:13 PM CDT BASIC METABOLIC PANEL STAT 04/17/2025 6:13 PM CDT CBC WITH AUTO DIFFERENTIAL STAT 04/17/2025 6:13 PM CDT EKG 12 LEAD STAT 04/17/2025 5:58 PM CDT from Last 3 Months Results * XR CHEST 2 VIEWS PA AND LATERAL (04/17/2025 6:45 PM CDT) Anatomical Region Laterality Modality CHEST, THORAX, Lung, HEART Digit al Radiography 04/17/2025 6:48 PM CDT Impressions 04/17/2025 6:48 PM CDT No consolidation. Dictated by Syed Agee MD @ 04/17/2025 6:48:55 PM (Electronically Signed) Narrative 04/17/2025 6:48 PM CDT For Patients: As a result of the Cures Act, medical imaging exams and procedure reports are released immediately into your electronic medical record. You may view this report before your referring provider. If you have questions, please contact your health care provider. INDICATION: Chest pain. TECHNIQUE: Chest 2 views. COMPARISON: October 2023. FINDINGS: Lungs: Normal lung volume. No consolidation. The tracheobronchial tree and hilar structures are unremarkable. Pleura: No pleural effusion or pneumothorax. Heart and Mediastinum: Normal heart size. The great vessels of the thorax are unremarkable. Bones: No acute displaced osseous process. Procedure Note Syed Agee MD - 04/17/2025 For Patients: As a result of the Cures Act, medical imagingexams and procedure reports are released immediately into your electronicmedical record. You may view this report before your referring provider.If you have questions, please contact your health care provider. INDICATION: Chest pain. TECHNIQUE: Chest 2 views. COMPARISON: October 2023. FINDINGS: Lungs: Normal lung volume. No consolidation. The tracheobronchial tree andhilar structures are unremarkable. Pleura: No pleural effusion or pneumothorax. Heart and Mediastinum: Normal heart size. The great vessels of the thoraxare unremarkable. Bones: No acute displaced osseous process. IMPRESSION: No consolidation. Dictated by Syed Agee MD @ 04/17/2025 6:48:55 PM (Electronically Signed) us Geraldine CHAVEZ GENERAL IMAGING Final R esult * TROPONIN T (HS) ACUTE W/2HR REFLEX (04/17/2025 6:13 PM CDT) TROPONIN T HS <6 6-10 ng/L ng/L 04/17/2025 6:59 PM CDT [facility] Blood BLOOD SPECIMEN / Unknown Venipuncture / Unknown 04/17/2025 6:13 PM CDT 04/17/2025 6:17 PM CDT Narrative [facility] - 04/17/2025 6:59 PM CDT hs-cTnT (Elecsys Troponin T Gen 5) concentration (s) above the sex-specific 99th percentile (16 ng/L or greater for males or 11 ng/L or greater for females) are indicative of myocardial injury. If initial hs-cTnT <=100 ng/L at presentation, a 0h/2h ABSOLUTE (ng/L) delta change (rising or falling) of >=10 ng/L suggests a significant change, whereas a 0h/2h delta change <=3 ng/L suggests no significant change. If initial hs-cTnT >100 ng/L at presentation, a 0h/2h/ RELATIVE (percent, %) delta change of 20% is suggested to distinguish patients with acute vs. chronic myocardial injury. There are multiple etiologies that can cause hs-cTnT increases above the 99th percentile (myocardial injury) other than acute myocardial infarction. Clinical context and careful clinical evaluation are critical for diagnosis and risk-stratification. The diagnosis of acute myocardial infarction requires a rising and/or falling pattern in hs-cTnT concentrations with at least one value above the sex-specific 99th percentile PLUS at least one of the following clinical criteria: ischemic symptoms, new or presumed new significant ST-T wave changes or new LBBB, development of pathological Q waves, imaging evidence of new loss of viable myocardium or new regional wall motion abnormality, or identification of intracoronary atherothrombosis or an acute angiographic culprit on coronary angiography. In appropriate low-risk patients with a non-ischemic electrocardiogram without active chest pain with a symptom onset >3-hours without recurrence, a single initial hs-cTnT<6 ng/L identifies patient with a very low risk in emergency department patient population. us Geraldine CHAVEZ CHEMISTRY Final R esult [facility] [address] [place] [address] * CBC WITH AUTO DIFFERENTIAL (04/17/2025 6:13 PM CDT) [facility] WHITE BLOOD COUNT 9.4 4.5 - 11.0 thou/cu mm 04/17/2025 6:21 PM CDT [facility] RED BLOOD COUNT 4.50 4.00 - 5.20 mil/cu mm 04/17/2025 6:21 PM [facility] HEMOGLOBIN 13.5 12.0 - 16.0 g/dL 04/17/2025 6:21 PM [facility] HEMATOCRIT 38.3 33.0 - 51.0 % 04/17/2025 6:21 PM [facility] MCV 85 80 - 100 fL 04/17/2025 6:21 PM [facility] MCH 30.0 26.0 - 34.0 pg 04/17/2025 6:21 PM [facility] MCHC 35.2 32.0 - 36.0 g/dL 04/17/2025 6:21 PM [facility] RDW 12.0 11.5 - 15.5 % 04/17/2025 6:21 PM [facility] PLATELET COUNT 393 140 - 440 thou/cu mm 04/17/2025 6:21 PM [facility] MPV 8.8 6.5 - 11.0 fL 04/17/2025 6:21 PM [facility] % NEUT 65.9 % 04/17/2025 6:21 PM [facility] % LYMPH 26.6 % 04/17/2025 6:21 PM [facility] % MONO 5.5 % 04/17/2025 6:21 PM [facility] % EOS 1.8 % 04/17/2025 6:21 PM [facility] % BASO 0.2 % 04/17/2025 6:21 PM [facility] ABSOLUTE NEUTROPHILS 6.2 1.7 - 7.0 thou/cu mm 04/17/2025 6:21 PM [facility] ABSOLUTE LYMPHOCYTES 2.5 0.9 - 2.9 thou/cu mm 04/17/2025 6:21 PM [facility] ABSOLUTE MONOCYTES 0.5 <0.9 thou/cu mm 04/17/2025 6:21 PM [facility] ABSOLUTE EOSINOPHILS 0.2 <0.5 thou/cu mm 04/17/2025 6:21 PM CDT [facility] ABSOLUTE BASOPHILS 0.0 <0.3 thou/cu mm 04/17/2025 6:21 PM CDT [facility] Blood BLOOD SPECIMEN / Unknown Venipuncture / Unknown 04/17/2025 6:13 PM CDT 04/17/2025 6:17 PM CDT us Geraldine CHAVEZ HEMATOLOGY Final R esult [facility] [address] [place] [address] * TSH (04/17/2025 6:13 PM CDT) TSH 1.05 0.27 - 4.20 uIU/mL 04/17/2025 8:04 PM CDT [facility] Blood BLOOD SPECIMEN / Unknown Venipuncture / Unknown 04/17/2025 6:13 PM CDT 04/17/2025 6:17 PM CDT Narrative [facility] - 04/17/2025 8:04 PM CDT In Adults, TSH values between 5.00 and 10.00 uIU/ml do not necessarily indicate the presence of Hypothyroidism. Correlation with clinical findings such as presence of goiter and/or Thyroperoxidase (TPO) Antibody may be helpful. For more information please refer to CALIN 2004; 291: 228-238. us Geraldine CHAVEZ CHEMISTRY Final R esult [facility] [address] [place] [address] * ,SERUM QUALITATIVE (04/17/2025 6:13 PM CDT) ,SERU M Negative Negative 04/17/2025 6:36 PM CDT [facility] Blood BLOOD SPECIMEN / Unknown Venipuncture / Unknown 04/17/2025 6:13 PM CDT 04/17/2025 6:17 PM CDT us Geraldine CHAVEZ CHEMISTRY Final R formerly [facility] Performing Organization Address City/[facility]/ZIP Co de Phone Number [facility] [address] [place] [address] * D-DIMER,QUANTITATIVE (04/17/2025 6:13 PM CDT) [facility] D-DIMER,QUANTI TATIVE <0.22 <=0.49 FEU mcg/mL 04/17/2025 6:26 PM CDT [facility] Blood BLOOD SPECIMEN / Unknown Venipuncture / Unknown 04/17/2025 6:13 PM CDT 04/17/2025 6:17 PM CDT Narrative [facility] - 04/17/2025 6:26 PM CDT The cut off value for exclusion of Deep Vein Thrombosis and / or Pulmonary Embolism is 0.50 FEU mcg/mL For patients greater than 50 years of age the upper limit is age dependent and was calculated with the formula: (PATIENT AGE x 0.01) FEU mcg/mL = Upper limit of normal range us Geraldine CHAVEZ HEMATOLOGY Final R formerly [facility] Performing Organization Address [facility]/ZIP Co de Phone Number [facility] [address] [place] [address] * (ABNORMAL) BASIC METABOLIC PANEL (04/17/2025 6:13 PM CDT) [facility] SODIUM 140 136 - 145 mmol/L 04/17/2025 6:59 PM CDT [facility] POTASSIUM 3.7 3.5 - 5.1 mmol/L 04/17/2025 6:59 PM CDT [facility] CHLORIDE 104 98 - 107 mmol/L 04/17/2025 6:59 PM CDT [facility] CO2,TOTAL 25 22 - 29 mmol/L 04/17/2025 6:59 PM CDT [facility] ANION GAP 11 5 - 18 04/17/2025 6:59 PM CDT [facility] GLUCOSE 101(H) 70 - 99 mg/dL 04/17/2025 6:59 PM CDT [facility] CALCIUM 9.2 8.8 - 10.4 mg/dL 04/17/2025 6:59 PM CDT [facility] Comment: Reference ranges for this test were updated on 07/05/2024 to reflect our healthy population more accurately. Reference range changes are not retroactively applied to results, but previous results using the same methodology can be interpreted in the context of the new reference range. BUN 7 6 - 20 mg/dL 04/17/2025 6:59 PM CDT [facility] CREATININE 0.61 0.50 - 0.90 mg/dL 04/17/2025 6:59 PM T [facility] BUN/CREAT RATIO 11 10 - 20 6:59 PM CDT [facility] eGFR >90 >90 mL/min/1. 73m2 04/17/2025 6:59 PM T [facility] Comment:As of 2021, eG FR is calculated by the CKD-EPI creatinine equation without race adjustment. eGFR can be influenced by muscle mass, exercise, and diet. The reported eGFR is an estimation only and is only applicable if the renal function is stable. Blood BLOOD SPECIMEN / Unknown Venipuncture / Unknown 04/17/2025 6:13 PM CDT 04/17/2025 6:17 PM CDT us Geraldine Landry PA CHEMISTRY Final R esult [facility] [address] [place] [address] * EKG 12 LEAD (04/17/2025 5:58 PM CDT) Interpretation Normal sinus rhythm with sinus arrhythmia Normal ECG No previous ECGs available BEYOND NOW Ventricular Rate 83 BPM BEYOND NOW Atrial Rate 83 BPM BEYOND NOW P-R Interval 130 ms BEYOND NOW QRS Duration 88 ms BEYOND NOW QT 372 ms BEYOND NOW QTc 437 ms BEYOND NOW P Aiken 52 degrees BEYOND NOW R Aiken 67 degrees BEYOND NOW T Aiken 42 degrees BEYOND NOW 04/17/2025 5:58 PM CDT 04/18/2025 6:27 AM CDT us Geraldine CHAVEZ EKG ORD Final R esult [place], [place] from Last 3 Months Insurance [facility] Care Teams Track Equipment Operator Relationship Specialty Start Date End Date Zoltan Copeland PA [address] [facility] [address] [place] [phone] PCP - General Physician Hearing Care Practitioner 05/02/23
[2025-06-01 00:28] VITALS: BP 118/77; PULSE 98; RESP 18; TEMP 37; O2SAT 97; BMI 20.7
--- NOTE | 2025-06-01 01:10 | ED.GENADULT ---
HPI - General Adult General Chief complaint: Constipation Stated complaint: constipated Time Seen by Provider: 06/01/25 00:38 Source: patient Mode of arrival: ambulatory Limitations: no limitations History of Present Illness HPI narrative: 24-year-old female who reports chronic constipation presents to the emergency department with constipation. No bloody stools. No fever. Does have some pain on the right side of the abdomen but fairly vague it does radiate a bit to the flank and shoulder area but there is no vomiting, no fever. No history of stones. No back pain. She does tend to have blood when wiping on an everyday basis, reports that this is unchanged but certainly not having any frankly bloody stools were blood clots. Her typical bowel regimen is MiraLax twice daily which she has continued to do. In addition to her typical regimen, she added in a single dose of milk of magnesia yesterday as in over 24 hours ago and then tried a Fleet's enema tonight with no significant improvement in symptoms, comes to the emergency room. Is not using a stool softener, has not tried other stimulant laxatives. No history of bowel or pelvic surgeries. No urinary gynecological changes. Denies chance of . Is not on long-term medications that would worsen constipation. Reports benign past medical history. There medications list in her chart, she denies using these besides the MiraLax. Penicillin allergy noted. ROS is notable for the GI symptoms only, otherwise denies times 12 systems today. Related Data Home Medications ?Medication ?Instructions ?Recorded ?Confirmed escitalopram oxalate 10 mg tablet 10 mg PO DAILY 05/04/23 05/11/23 levonorgestrel 0.15 mg-ethinyl 1 tab PO DAILY 05/04/23 05/11/23 estradiol 30 mcg tablets,3 mos pack(91) famotidine 20 mg tablet 20 mg PO DAILY 05/11/23 05/11/23 Previous Rx's ?Medication ?Instructions ?Recorded Magic Mouthwash 5 - 10 ml PO QID PRN #120 mL 05/02/23 (Lidocaine/Benadryl/Maalox) 120 mL suspension peg 3350-electrolytes 236 240 ml PO Q10M #4,000 mL 10/08/24 gram-22.74 gram-6.74 gram-5.86 gram solution (GaviLyte-G) Allergies Allergy/AdvReac Type Severity Reaction Status Date / Time cat dander Allergy Mild Itchiness Verified 06/01/25 00:32 [facility] Social History Smoking Status: Current every day smoker Do you use any of these nicotine containing products: E-Cigarettes and Vaping Products Second hand tobacco smoke exposure: No How often do you have a drink containing alcohol: never How often do you have six or more drinks on one occasion: Never AUDIT-C Alcohol total score: 0 Non-prescribed substance use: denies use service: No Exam Const: Vital Signs, click to edit/add: Vital Signs - 24 hr 06/01/25 00:28 Temperature 98.6 F Pulse Rate [Pulse Oximeter] 98 Respiratory Rate 18 Blood Pressure [Ri ght Upper Arm] 118/77 Pulse Oximetry 97 Oxygen Delivery Me thod Room Air Documenting provider has reviewed patient's vital signs: yes Common normals: no apparent distress and alert General appearance: cooperative and well kempt HENMT: Common normals: normocephalic Head and scalp: normocephalic Other: Lips are acyanotic. Face symmetric. Eye: Common normals: conjunctivae normal General eye: normal appearance of both eyes Conjunctiva: conjunctiva(e) normal Neck & C-Spine: Common normals: full ROM and no lymphadenopathy General: normal visual inspection Resp: Common normals: normal respiratory effort and clear to auscultation bilaterally Auscultation: clear to auscultation bilaterally Cardio: Common normals: regular rate, regular rhythm, S1 normal heart sound, S2 normal heart sound and no murmurs Rate: regular rate Rhythm: regular rhythm Heart sounds: S1 normal and S2 normal GI: Common normals: Normal to inspection, nondistended, normoactive bowel sounds present, soft to palpation, non-tender, no hepatosplenomegaly and no masses Palpation: soft and no hepatosplenomegaly Other: Benign exam. Certainly no rebound tenderness or guarding. No masses. Minimally tender, but diffuse and throughout. Neuro: Sensorium/orientation: alert Speech: speech normal Psych: Appearance: well kempt Attitude: engaged Activity/motor behavior: appropriate eye contact Mood and affect: euthymic mood Insight: insight good Judgement: judgment good Skin: Common normals: no rashes or lesions noted General skin exam: no rashes or lesions noted Course Course ED Course: 24-year-old female concerned with constipation. Has some right-sided abdominal pain but a very benign exam. Stable vitals, no fever. Low suspicion for gallstone, cholecystitis, appendicitis or other complication. She suspects that she is constipated I suspect that this is the case as well. No signs of pancreatitis, obstruction, other dangerous pathology. Discussed with patient that based on her clinical exam, I do not see any indications for imaging or blood work. She really has only tried an enema and a single dose of milk of magnesia above her typical baseline medications. We discussed how osmotic versus stimulant laxatives work. I did review and confirm that she is using her osmotic laxative properly. She will be given 1 Enemeez here in the emergency room to help soften any harder impacted rectal stool. I would like for her to try leave this in for at least a 1/2 hour. She will be given 2 senna tablets as stimulant laxative and a dose of MiraLax. She will continue on a single senna tablet and 17 g of MiraLax every 8 hours up to 6 doses, stopping if she has very soft stools. She will then resume her typical twice daily MiraLax and I have encouraged twice daily fiber gummies and 1 senna tablet in addition to help prevent symptoms. Should she become constipated again, initiate the regimen of t.i.d. dosing as written above. Primary care GI follow-up if there are continued concerns for chronic management. As far as alarm symptoms if she has has a fever, severe bloody stools, persistent vomiting or more consistent pain in the right upper quadrant, I would recommend that she return to the emergency room for further workup. She was agreeable to this plan. Vital Signs Vital signs: Initial Vital Signs Temperature 98.6 F 06/01/25 00:28 Temperature Source Temporal Artery Scan 06/01/25 00:28 Pulse Rate 98 06/01/25 00:28 Pulse Rhythm Regular 06/01/25 00:28 Respiratory Rate 18 06/01/25 00:28 Blood Pressure 118/77 06/01/25 00:28 Blood Pressure Mean 90 06/01/25 00:28 Blood Pressure Position Sitting 06/01/25 00:28 Pulse Oximetry 97 06/01/25 00:28 Oxygen Delivery Method Room Air 06/01/25 00:28 Vital Signs Temperature 98.6 F 06/01/25 00:28 Pulse Rate 98 06/01/25 00:28 Respiratory Rate 18 06/01/25 00:28 Blood Pressure 118/77 06/01/25 00:28 Pulse Oximetry 97 06/01/25 00:28 Oxygen Delivery Method Room Air 06/01/25 00:28 Temperature 98.6 F 06/01/25 00:28 Pulse Rate 98 06/01/25 00:28 Respiratory Rate 18 06/01/25 00:28 Blood Pressure 118/77 06/01/25 00:28 Pulse Oximetry 97 06/01/25 00:28 Oxygen Delivery Method Room Air 06/01/25 00:28 Discharge Plan Discharge Clinical Impression: Constipation Patient Disposition: Home w/ Parent or Adult Condition: Stable Instructions: Constipation (DC) Additional Instructions: Chronic constipation can be quite frustrating. There are no signs of infection, obstruction or dangerous abnormality today in the emergency room. Based on your benign exam, lack of fever, normal vital signs, I do not recommend imaging or blood work. I would recommend that we try cleaning out her bowels aggressively for the next couple of days and if your pain is significantly worse or you develop other signs of problems, please return to the emergency room. You were started on a combination of stimulant laxatives, osmotic laxatives and rectal medication to help soften any impacted stool. He will continue on this regimen every 8 hours at home until you have good relief of your constipation. Your regimen will be as follows: 17 g of MiraLax, 1 standard dose in 8 oz of beverage of choice every 8 hours until your bowels move very soft, up to 6 doses. One senna tablet every 8 hours with this. If you have not gotten relief of your constipation after the 1st 24 hours, do another enema. Continue drinking lots of water. Once your bowels move well, continue your regimen of twice daily MiraLax. I would also recommend that you at in twice daily fiber gummies and an [id number] stool softener like docusate twice daily also. Initiate the regimen above if you become constipated again down the road and do this for 48 hours, presenting then to the emergency room if you have not had relief after 6 doses of the above regimen. Activity Level: No Restrictions Discharge Diet: Regular Prescriptions: No Action Magic Mouthwash (Lidocaine/Benadryl/Maalox) 120 mL suspension 5 - 10 ml PO QID PRNQty: 120 1RF Rx Instructions: Lidocaine Viscous 2 % mucosal solution 40 mL; Maalox 200 mg-200 mg-20 mg/5 mL oral suspension 40 mL; Benadryl 12.5 mg/5 mL oral elixir 40 mL; Per 120 mL SWISH AND SPIT. MAY COMPOUND IF FIRST PRODUCT IS NOT AVAILABLE. peg 3350-electrolytes [GaviLyte-G] 236-22.74-6.74 -5.86 gram recon soln 240 ml PO Q10M Qty: 4000 0RF Rx Instructions: until fecal effluent is clear escitalopram oxalate 10 mg tablet 10 mg PO DAILY levonorgestrel-ethinyl estrad 0.15 mg-30 mcg (91) tablets,dose pack,3 month 1 tab PO DAILY famotidine 20 mg tablet 20 mg PO DAILY Follow Up/Referrals: Zoltan Copeland PA-C [Primary Care Provider, Family Practice] Stand Alone [facility] Inst[facility]
[2025-06-01] MEDS: DOCUSATE SODIUM/BENZOCAINE 5 ML ENEMA PR (01:26)
[2025-06-01] MEDS: SENNOSIDES 1 TAB TABLET 2 TAB PO (01:26)
[2025-06-01 01:52] VITALS: BP 126/82; PULSE 92; RESP 18
== END 2025-06-01 02:03 | disposition home or self-care (01) ==
LOC: ED 01:22
PROVIDERS: Emergency Provider Family Medicine; PCP Physician Assistant
DX: K59.00 Constipation, unspecified (principal)
CPT/HCPCS: 99282; 99283; A9270